=== PATIENT | male | born 1950 | race Caucasian/White ===

== ENCOUNTER 2022-02-27 11:07 | Inpatient (IN) | payer MEDICARE ==
[~2022-02-27] VITALS: Ht 193 cm; Wt 64.0 kg
[2022-02-27 11:28] LABS: BASOPHILS % (AUTO) 0.1 % (0.0-2.0); EOSINOPHILS % (AUTO) 0.2 % (1.0-6.0); HEMATOCRIT 32.2 % (41-53); HEMOGLOBIN 10.7 g/dL (13.5-17.5); LYMPHOCYTES # (AUTO) 0.6 K/uL (1.0-4.8); LYMPHOCYTES % (AUTO) 4.3 % (22.0-44.0); MEAN CORPUSCULAR HEMOGLOBIN 32.1 pg (26.0-34.0); MEAN CORPUSCULAR HGB CONC 33.3 G/dL (31.0-37.0); MEAN CORPUSCULAR VOLUME 96 fL (80-100); MONOCYTES # (AUTO) 0.8 K/uL (0.1-1.0); MONOCYTES % (AUTO) 5.2 % (2.0-9.0); NEUTROPHILS # (AUTO) 13.3 K/uL (1.8-7.7); PLATELET COUNT (AUTO) 404 K/uL (150-450); RED BLOOD CELL COUNT(AUTO) 3.34 MIL/uL (4.50-5.90); RED CELL DISTRIBUTION WIDTH 13.4 % (11.5-14.5)
[2022-02-27 11:30] LABS: NEUTROPHILS % (AUTO) 90.2 % (40.0-70.0)
[2022-02-27 11:47] LABS: INR 1.1 (0.9-1.1); PROTHROMBIN TIME 11.3 SEC (9.4-11.6)
[2022-02-27 11:50] LABS: ANION GAP 11 mmol/L (8-16); CALCIUM, TOTAL 9.3 mg/dL (8.8-10.5); CARBON DIOXIDE 28 mmol/L (22-29); CHLORIDE 96 mmol/L (98-107); CREATININE 0.74 mg/dL (0.60-1.30); GLUCOSE,RANDOM 110 mg/dL (70-110); SODIUM SERUM 135 mmol/L (136-145); UREA NITROGEN, BLOOD 28 mg/dL (7-18)
[2022-02-27 11:51] LABS: COVID AG,FIA SOURCE NASAL SWAB
[2022-02-27 11:52] LABS: GLOMERULAR FILTR. RATE CALC > 60 mL/min (>60)
[2022-02-27 11:55] LABS: ALANINE AMINOTRANSFERASE 16 U/L (12-78); ALBUMIN 2.5 g/dL (3.4-5.0); ALKALINE PHOSPHATASE 190 U/L (46-116); ASPARTATE AMINOTRANSFERASE 23 U/L (15-37); BILIRUBIN,TOTAL 0.4 mg/dL (0.1-1.0); PHOSPHORUS 2.8 mg/dL (2.5-4.9)
[2022-02-27] MEDS ORDERED: DILTIAZEM HCL 5 MG/ML 5 ML VIAL IVP ONE (13:45)
[2022-02-27] MEDS ORDERED: SODIUM CHLORIDE 0.9% 1,000 ML IV ONE ×2 (14:15→15:30)
[2022-02-27] MEDS ORDERED: DILTIAZEM HCL 30 MG TABLET PO ONE (14:15)
[2022-02-27] MEDS ORDERED: DILTIAZEM HCL 30 MG TABLET PO PRN (15:00)
[2022-02-27] MEDS ORDERED: ASPIRIN 81 MG CHEWABLE TABLET PO SCH (15:00)
[2022-02-27] MEDS ORDERED: 0.9% SODIUM CHLORIDE 10 ML SYRINGE IVP PRN (15:30)
[2022-02-27] MEDS ORDERED: ONDANSETRON HCL 4 MG/2 ML VIAL IVP PRN (15:30)
[2022-02-27] MEDS ORDERED: SODIUM CHLORIDE 0.9% 100 ML ONE (16:15)
[2022-02-27] MEDS ORDERED: IOHEXOL 350 MG/ML 100 ML VIAL ONE (16:15)
[2022-02-27 19:15] VITALS: BP 135/76
[2022-02-27] MEDS: METOPROLOL TARTRATE 25 MG TABLET PO SCH (21:18)
[2022-02-27] MEDS: LACTOBACILLUS ACIDOPHILUS/BULGARICUS TABLET PO SCH (21:18)
[2022-02-28] VITALS (7 sets, daily range): BP systolic 122–136; BP diastolic 60–76
[2022-02-28 05:05] LABS: APPEARANCE,URINE CLEAR (CLEAR); BILIRUBIN,URINE NEGATIVE (NEGATIVE); GLUCOSE, URINE (UA) NEGATIVE (NEGATIVE); LEUKOCYTE ESTERASE ,URINE NEGATIVE (NEGATIVE); NITRATE,URINE NEGATIVE (NEGATIVE); OCCULT BLOOD,URINE TRACE (NEGATIVE); PROTEIN,URINE TRACE mg/dL (NEGATIVE); UROBILINOGEN,URINE <=1.0 mg/dL (<=1.0)
[2022-02-28 05:13] LABS: AMPHET/METH SCREEN,URINE NEGATIVE (NEGATIVE); BARBITURATE SCREEN, URINE NEGATIVE (NEGATIVE); BENZODIAZEPINES SCREEN,URINE NEGATIVE (NEGATIVE); CANNABINOID SCREEN,URINE NEGATIVE (NEGATIVE); COCAINE SCREEN,URINE NEGATIVE (NEGATIVE); METHADONE SCREEN, URINE NEGATIVE (NEGATIVE); OPIATE SCREEN,URINE NEGATIVE (NEGATIVE); SPECIFIC GRAVITIY, URINE > 1.050 (1.003-1.030)
[2022-02-28 05:16] LABS: PHENCYCLIDINE SCREEN,URINE NEGATIVE (NEGATIVE)
[2022-02-28 05:26] LABS: BACTERIA,URINE None Seen /HPF (None Seen); RBC,URINE 0-2 /HPF (0-2); WBC,URINE None Seen /HPF (0-5)
[2022-02-28 06:49] LABS: BASOPHILS % (AUTO) 0.3 % (0.0-2.0); EOSINOPHILS % (AUTO) 1.6 % (1.0-6.0); HEMATOCRIT 27.6 % (41-53); HEMOGLOBIN 9.2 g/dL (13.5-17.5); LYMPHOCYTES # (AUTO) 0.5 K/uL (1.0-4.8); LYMPHOCYTES % (AUTO) 3.8 % (22.0-44.0); MEAN CORPUSCULAR HEMOGLOBIN 32.1 pg (26.0-34.0); MEAN CORPUSCULAR HGB CONC 33.5 G/dL (31.0-37.0); MEAN CORPUSCULAR VOLUME 96 fL (80-100); MONOCYTES # (AUTO) 0.7 K/uL (0.1-1.0); MONOCYTES % (AUTO) 5.4 % (2.0-9.0); NEUTROPHILS # (AUTO) 11.9 K/uL (1.8-7.7); PLATELET COUNT (AUTO) 324 K/uL (150-450); RED BLOOD CELL COUNT(AUTO) 2.87 MIL/uL (4.50-5.90); RED CELL DISTRIBUTION WIDTH 13.3 % (11.5-14.5)
[2022-02-28 06:52] LABS: NEUTROPHILS % (AUTO) 88.9 % (40.0-70.0)
[2022-02-28 07:18] LABS: ALANINE AMINOTRANSFERASE 21 U/L (12-78); ALKALINE PHOSPHATASE 145 U/L (46-116); ANION GAP 9 mmol/L (8-16); ASPARTATE AMINOTRANSFERASE 26 U/L (15-37); BILIRUBIN,TOTAL 0.3 mg/dL (0.1-1.0); CALCIUM, TOTAL 8.7 mg/dL (8.8-10.5); CARBON DIOXIDE 26 mmol/L (22-29); CHLORIDE 97 mmol/L (98-107); CHOLESTEROL 117 mg/dL (131-200); GLUCOSE,RANDOM 82 mg/dL (70-110); HDL CHOLESTEROL 29 mg/dL (40-60); LDL CHOL (CALC.) 69 mg/dL (0-130); SODIUM SERUM 132 mmol/L (136-145); THYROID STIMULATING HORMONE 1.06 uIU/mL (0.36-3.74); TOTAL PROTEIN, SERUM 6.7 g/dL (6.4-8.2); TRIGLYCERIDES 93 mg/dL (15-150); UREA NITROGEN, BLOOD 16 mg/dL (7-18)
[2022-02-28 07:22] LABS: GLOMERULAR FILTR. RATE CALC > 60 mL/min (>60)
[2022-02-28] MEDS: LACTOBACILLUS ACIDOPHILUS/BULGARICUS TABLET PO SCH ×2 (08:40→22:27)
[2022-02-28] MEDS: METOPROLOL TARTRATE 25 MG TABLET PO SCH ×2 (08:40→22:27)
[2022-02-28] MEDS: ASPIRIN 81 MG DR TABLET PO SCH (08:40)
[2022-02-28] MEDS ORDERED: ASPIRIN 81 MG CHEWABLE TABLET PO SCH (09:00)
[2022-02-28] MEDS: POTASSIUM CHLORIDE 20 MEQ ER TABLET PO PRN ×2 (11:01→18:22)
[2022-02-28] MEDS: NICOTINE 14 MG/24 HOUR PATCH TD SCH (11:52)
[2022-02-28] MEDS ORDERED: SODIUM CHLORIDE 0.9% 250 ML IV ONE (16:31)
[2022-02-28] MEDS: DOXYCYCLINE HYCLATE 100 MG in DEXTROSE 5%-WATER 100 ML IV SCH (16:37)
[2022-02-28] MEDS: CefTRIAXone 1 GM/DEXTROSE 50 ML IV SCH (16:37)
[2022-03-01] VITALS (7 sets, daily range): BP systolic 97–141; BP diastolic 51–71
[2022-03-01] MEDS: DOXYCYCLINE HYCLATE 100 MG in DEXTROSE 5%-WATER 100 ML IV SCH ×2 (04:20→16:05)
[2022-03-01 07:37] LABS: BASOPHILS % (AUTO) 0.3 % (0.0-2.0); HEMATOCRIT 27.2 % (41-53); HEMOGLOBIN 9.2 g/dL (13.5-17.5); LYMPHOCYTES # (AUTO) 0.6 K/uL (1.0-4.8); LYMPHOCYTES % (AUTO) 4.9 % (22.0-44.0); MEAN CORPUSCULAR HGB CONC 33.9 G/dL (31.0-37.0); MEAN CORPUSCULAR VOLUME 95 fL (80-100); MONOCYTES # (AUTO) 0.8 K/uL (0.1-1.0); MONOCYTES % (AUTO) 7.3 % (2.0-9.0); NEUTROPHILS # (AUTO) 9.7 K/uL (1.8-7.7); PLATELET COUNT (AUTO) 337 K/uL (150-450); RED BLOOD CELL COUNT(AUTO) 2.88 MIL/uL (4.50-5.90); RED CELL DISTRIBUTION WIDTH 13.1 % (11.5-14.5)
[2022-03-01 07:49] LABS: NEUTROPHILS % (AUTO) 86.5 % (40.0-70.0)
[2022-03-01 07:59] LABS: ALANINE AMINOTRANSFERASE 19 U/L (12-78); ALBUMIN 1.8 g/dL (3.4-5.0); ALKALINE PHOSPHATASE 125 U/L (46-116); ANION GAP 6 mmol/L (8-16); ASPARTATE AMINOTRANSFERASE 24 U/L (15-37); BILIRUBIN,TOTAL 0.3 mg/dL (0.1-1.0); CALCIUM, TOTAL 8.5 mg/dL (8.8-10.5); CARBON DIOXIDE 27 mmol/L (22-29); CHLORIDE 95 mmol/L (98-107); CREATININE 0.57 mg/dL (0.60-1.30); GLUCOSE,RANDOM 111 mg/dL (70-110); POTASSIUM 3.7 mmol/L (3.5-5.1); SODIUM SERUM 128 mmol/L (136-145); TOTAL PROTEIN, SERUM 6.4 g/dL (6.4-8.2); UREA NITROGEN, BLOOD 8 mg/dL (7-18)
[2022-03-01 08:05] LABS: GLOMERULAR FILTR. RATE CALC > 60 mL/min (>60)
[2022-03-01] MEDS: ASPIRIN 81 MG DR TABLET PO SCH (09:46)
[2022-03-01] MEDS: LACTOBACILLUS ACIDOPHILUS/BULGARICUS TABLET PO SCH ×2 (09:47→21:07)
[2022-03-01] MEDS: METOPROLOL TARTRATE 25 MG TABLET PO SCH ×3 (09:47→22:10)
[2022-03-01] MEDS: NICOTINE 14 MG/24 HOUR PATCH TD SCH (09:47)
[2022-03-01] MEDS ORDERED: MAGNESIUM SULFATE 2 GM/WATER 50 ML IV PRN (10:45)
[2022-03-01] MEDS ORDERED: MAGNESIUM SULFATE 4 GM/WATER 100 ML IV PRN (10:45)
[2022-03-01] MEDS: CefTRIAXone 1 GM/DEXTROSE 50 ML IV SCH (14:18)
[2022-03-01] MEDS ORDERED: HEPARIN SODIUM,PORCINE 5,000 UNITS/ML VIAL SQ SCH (21:00)
[2022-03-01] MEDS ORDERED: SODIUM CHLORIDE 0.9% 250 ML IV ONE ×4 (22:45→23:00)
[2022-03-01] MEDS: ACETAMINOPHEN 325 MG TABLET PO PRN (22:57)
[2022-03-01] MEDS ORDERED: DILTIAZEM HCL 5 MG/ML 5 ML VIAL IVP ONE (23:00)
[2022-03-01] MEDS ORDERED: POTASSIUM CHLORIDE 10% 40 MEQ/30 ML LIQUID UDCUP PO ONE (23:30)
[2022-03-01] MEDS ORDERED: DIGOXIN 250 MCG/ML 2 ML AMP IVP ONE (23:30)
[2022-03-02] VITALS (9 sets, daily range): BP systolic 88–122; BP diastolic 38–67
[2022-03-02] MEDS ORDERED: MAGNESIUM SULFATE 2 GM/WATER 50 ML IV ONE
[2022-03-02 00:55] LABS: MAGNESIUM 1.9 mg/dL (1.80-2.40); POTASSIUM 3.3 mmol/L (3.5-5.1)
[2022-03-02] MEDS ORDERED: PHENYLEPHRINE 200 MG/D5%-WATER 250 ML IV PRN (01:15)
[2022-03-02] MEDS ORDERED: HEPARIN SODIUM 25000 UNITS/D5W 250 ML IV PRN (01:15)
[2022-03-02] MEDS ORDERED: SODIUM CHLORIDE 0.9% 250 ML IV ONE (01:15)
[2022-03-02] MEDS ORDERED: HEPARIN SODIUM,PORCINE 5,000 UNITS/ML VIAL IVP PRN ×2 (01:15)
[2022-03-02] MEDS ORDERED: AMIODARONE HCL 150 MG in DEXTROSE 5%-WATER 97 ML IV ONE (01:20)
[2022-03-02] MEDS ORDERED: AMIODARONE HCL 360 MG in DEXTROSE 5%-WATER 242.8 ML IV ONE (01:30)
[2022-03-02 02:35] LABS: INR 1.1 (0.9-1.1); PROTHROMBIN TIME 11.2 SEC (9.4-11.6)
[2022-03-02] MEDS: DOXYCYCLINE HYCLATE 100 MG in DEXTROSE 5%-WATER 100 ML IV SCH ×2 (05:01→15:27)
[2022-03-02] MEDS ORDERED: AMIODARONE HCL 540 MG in DEXTROSE 5%-WATER 239.2 ML IV ONE (07:30)
[2022-03-02 08:02] LABS: BASOPHILS % (AUTO) 0.3 % (0.0-2.0); EOSINOPHILS % (AUTO) 1.9 % (1.0-6.0); HEMATOCRIT 26.8 % (41-53); HEMOGLOBIN 9.2 g/dL (13.5-17.5); LYMPHOCYTES # (AUTO) 0.7 K/uL (1.0-4.8); LYMPHOCYTES % (AUTO) 7.1 % (22.0-44.0); MEAN CORPUSCULAR HEMOGLOBIN 32.6 pg (26.0-34.0); MEAN CORPUSCULAR HGB CONC 34.5 G/dL (31.0-37.0); MEAN CORPUSCULAR VOLUME 95 fL (80-100); MONOCYTES # (AUTO) 0.8 K/uL (0.1-1.0); MONOCYTES % (AUTO) 8.2 % (2.0-9.0); NEUTROPHILS # (AUTO) 8.1 K/uL (1.8-7.7); NEUTROPHILS % (AUTO) 82.5 % (40.0-70.0); PLATELET COUNT (AUTO) 300 K/uL (150-450); RED BLOOD CELL COUNT(AUTO) 2.83 MIL/uL (4.50-5.90); RED CELL DISTRIBUTION WIDTH 13.1 % (11.5-14.5)
[2022-03-02 08:39] LABS: ALANINE AMINOTRANSFERASE 17 U/L (12-78); ALBUMIN 1.7 g/dL (3.4-5.0); ALKALINE PHOSPHATASE 109 U/L (46-116); ASPARTATE AMINOTRANSFERASE 18 U/L (15-37); BILIRUBIN,TOTAL 0.3 mg/dL (0.1-1.0); CALCIUM, TOTAL 8.3 mg/dL (8.8-10.5); CARBON DIOXIDE 28 mmol/L (22-29); CHLORIDE 93 mmol/L (98-107); CREATININE 0.62 mg/dL (0.60-1.30); GLUCOSE,RANDOM 106 mg/dL (70-110); POTASSIUM 4.1 mmol/L (3.5-5.1); TOTAL PROTEIN, SERUM 6.2 g/dL (6.4-8.2); UREA NITROGEN, BLOOD 9 mg/dL (7-18)
[2022-03-02 08:53] LABS: ANION GAP 4 mmol/L (8-16); GLOMERULAR FILTR. RATE CALC > 60 mL/min (>60); SODIUM SERUM 125 mmol/L (136-145)
[2022-03-02] MEDS ORDERED: HEPARIN SODIUM,PORCINE 5,000 UNITS/ML VIAL SQ SCH (09:00)
[2022-03-02] MEDS: ASPIRIN 81 MG DR TABLET PO SCH (09:05)
[2022-03-02] MEDS: LACTOBACILLUS ACIDOPHILUS/BULGARICUS TABLET PO SCH ×2 (09:05→20:15)
[2022-03-02] MEDS: NICOTINE 14 MG/24 HOUR PATCH TD SCH (09:05)
[2022-03-02] MEDS: METOPROLOL TARTRATE 25 MG TABLET PO SCH ×2 (09:06→20:16)
[2022-03-02] MEDS ORDERED: DOCUSATE SODIUM 100 MG CAPSULE PO PRN (11:00)
[2022-03-02] MEDS ORDERED: SODIUM CHLORIDE 0.9% 1,000 ML IV ONE (11:15)
[2022-03-02] MEDS: CefTRIAXone 1 GM/DEXTROSE 50 ML IV SCH (17:01)
[2022-03-02] MEDS ORDERED: *CLINICAL-RX DOSING [ENTER DRUG IN COMMENTS] CLINICAL ONE (18:30)
[2022-03-02] MEDS: PYRAZINAMIDE 500 MG TABLET PO SCH (20:15)
[2022-03-02] MEDS: ETHAMBUTOL HCL 400 MG TABLET PO SCH (20:16)
[2022-03-02] MEDS: RIFAMPIN 300 MG CAPSULE PO SCH (20:16)
[2022-03-02] MEDS: ISONIAZID 300 MG TABLET PO SCH (20:17)
[2022-03-02] MEDS: APIXABAN 5 MG TABLET PO SCH (20:17)
[2022-03-03] VITALS (13 sets, daily range): BP systolic 71–122; BP diastolic 46–76
[2022-03-03] MEDS ORDERED: AMIODARONE HCL 750 MG in DEXTROSE 5%-WATER 485 ML IV SCH (01:30)
[2022-03-03] MEDS: DOXYCYCLINE HYCLATE 100 MG in DEXTROSE 5%-WATER 100 ML IV SCH (04:57)
[2022-03-03 06:36] LABS: BASOPHILS % (AUTO) 1.3 % (0.0-2.0); EOSINOPHILS % (AUTO) 0.8 % (1.0-6.0); HEMATOCRIT 26.9 % (41-53); LYMPHOCYTES # (AUTO) 0.5 K/uL (1.0-4.8); LYMPHOCYTES % (AUTO) 4.5 % (22.0-44.0); MEAN CORPUSCULAR HEMOGLOBIN 31.6 pg (26.0-34.0); MEAN CORPUSCULAR HGB CONC 33.5 G/dL (31.0-37.0); MEAN CORPUSCULAR VOLUME 94 fL (80-100); MONOCYTES # (AUTO) 0.8 K/uL (0.1-1.0); MONOCYTES % (AUTO) 6.9 % (2.0-9.0); NEUTROPHILS # (AUTO) 10.2 K/uL (1.8-7.7); PLATELET COUNT (AUTO) 368 K/uL (150-450); RED BLOOD CELL COUNT(AUTO) 2.85 MIL/uL (4.50-5.90); RED CELL DISTRIBUTION WIDTH 13.4 % (11.5-14.5)
[2022-03-03 06:40] LABS: NEUTROPHILS % (AUTO) 86.5 % (40.0-70.0)
[2022-03-03 06:48] LABS: ANION GAP 7 mmol/L (8-16); CALCIUM, TOTAL 8.1 mg/dL (8.8-10.5); CARBON DIOXIDE 25 mmol/L (22-29); CHLORIDE 91 mmol/L (98-107); CREATININE 0.57 mg/dL (0.60-1.30); GLUCOSE,RANDOM 104 mg/dL (70-110); POTASSIUM 3.8 mmol/L (3.5-5.1); UREA NITROGEN, BLOOD 10 mg/dL (7-18)
[2022-03-03 06:57] LABS: GLOMERULAR FILTR. RATE CALC > 60 mL/min (>60); SODIUM SERUM 123 mmol/L (136-145)
[2022-03-03] MEDS: NICOTINE 14 MG/24 HOUR PATCH TD SCH (08:47)
[2022-03-03] MEDS: RIFAMPIN 300 MG CAPSULE PO SCH (08:48)
[2022-03-03] MEDS: LACTOBACILLUS ACIDOPHILUS/BULGARICUS TABLET PO SCH ×2 (08:48→21:04)
[2022-03-03] MEDS: APIXABAN 5 MG TABLET PO SCH ×2 (08:49→21:04)
[2022-03-03] MEDS: METOPROLOL TARTRATE 25 MG TABLET PO SCH ×2 (08:49→21:00)
[2022-03-03] MEDS: ETHAMBUTOL HCL 400 MG TABLET PO SCH (08:49)
[2022-03-03] MEDS: PYRAZINAMIDE 500 MG TABLET PO SCH (08:49)
[2022-03-03] MEDS: ISONIAZID 300 MG TABLET PO SCH (08:49)
[2022-03-03] MEDS: ACETAMINOPHEN 325 MG TABLET PO PRN ×2 (11:14→21:04)
[2022-03-03] MEDS: TAMSULOSIN HCL 0.4 MG CAPSULE PO SCH ×2 (12:32→21:04)
[2022-03-03] MEDS: SODIUM CHLORIDE 1 GM TABLET PO SCH (21:04)
[2022-03-03] MEDS ORDERED: METOPROLOL TARTRATE 5 MG/5 ML VIAL IVP ONE (21:45)
[2022-03-03] MEDS ORDERED: RINGERS SOLUTION,LACTATED 500 ML IV ONE (21:45)
[2022-03-03] MEDS ORDERED: DIGOXIN 250 MCG/ML 2 ML AMP IVP ONE (23:15)
[2022-03-03] MEDS ORDERED: PHENYLEPHRINE 200 MG/D5%-WATER 250 ML IV PRN ×2 (23:15)
[2022-03-04] VITALS (7 sets, daily range): BP systolic 106–132; BP diastolic 58–77
[2022-03-04 00:43] LABS: APPEARANCE,URINE CLEAR (CLEAR); BILIRUBIN,URINE NEGATIVE (NEGATIVE); GLUCOSE, URINE (UA) NEGATIVE (NEGATIVE); KETONES,URINE NEGATIVE (NEGATIVE); LEUKOCYTE ESTERASE ,URINE SMALL (NEGATIVE); NITRATE,URINE NEGATIVE (NEGATIVE); OCCULT BLOOD,URINE TRACE (NEGATIVE); PH,URINE 6.5 (5.0-8.0); PROTEIN,URINE TRACE mg/dL (NEGATIVE); SPECIFIC GRAVITIY, URINE 1.019 (1.003-1.030)
[2022-03-04 00:48] LABS: CREATININE,URINE RANDOM 77.9 mg/dL (30.0-125.0); PROTEIN,URINE RANDOM 44 mg/dL (0-11.9); SODIUM,URINE RANDOM 83 mmol/l (20-110); UREA NITROGEN,URINE RANDOM 636 mg/dL (350-1000)
[2022-03-04 00:51] LABS: GLUCOMETER DEV NAME(LOC) 5S.1B; GLUCOSE,POINT OF CARE 124 MG/DL (70-110)
[2022-03-04 01:36] LABS: BACTERIA,URINE None Seen /HPF (None Seen); MUCUS,URINE Rare LPF (None Seen); SQUAMOUS EPITHELIAL CELL,UR Rare /LPF (None Seen)
[2022-03-04 06:29] LABS: BASOPHILS % (AUTO) 0.5 % (0.0-2.0); EOSINOPHILS % (AUTO) 1.3 % (1.0-6.0); HEMATOCRIT 27.6 % (41-53); HEMOGLOBIN 9.6 g/dL (13.5-17.5); LYMPHOCYTES # (AUTO) 0.5 K/uL (1.0-4.8); LYMPHOCYTES % (AUTO) 4.1 % (22.0-44.0); MEAN CORPUSCULAR HEMOGLOBIN 32.3 pg (26.0-34.0); MEAN CORPUSCULAR HGB CONC 34.6 G/dL (31.0-37.0); MEAN CORPUSCULAR VOLUME 93 fL (80-100); MONOCYTES # (AUTO) 0.9 K/uL (0.1-1.0); NEUTROPHILS # (AUTO) 10.9 K/uL (1.8-7.7); PLATELET COUNT (AUTO) 430 K/uL (150-450); RED BLOOD CELL COUNT(AUTO) 2.97 MIL/uL (4.50-5.90); RED CELL DISTRIBUTION WIDTH 13.9 % (11.5-14.5)
[2022-03-04 06:36] LABS: NEUTROPHILS % (AUTO) 87.1 % (40.0-70.0)
[2022-03-04 06:43] LABS: ANION GAP 8 mmol/L (8-16); CALCIUM, TOTAL 8.5 mg/dL (8.8-10.5); CARBON DIOXIDE 25 mmol/L (22-29); CHLORIDE 91 mmol/L (98-107); CREATININE 0.64 mg/dL (0.60-1.30); GLUCOSE,RANDOM 100 mg/dL (70-110); PHOSPHORUS 3.9 mg/dL (2.5-4.9); POTASSIUM 3.5 mmol/L (3.5-5.1); UREA NITROGEN, BLOOD 12 mg/dL (7-18); URIC ACID 4.1 mg/dL (2.6-7.2)
[2022-03-04 07:02] LABS: GLOMERULAR FILTR. RATE CALC > 60 mL/min (>60); SODIUM SERUM 124 mmol/L (136-145)
[2022-03-04] MEDS ORDERED: SODIUM CHLORIDE 0.9% 1,000 ML IV ONE (08:45)
[2022-03-04] MEDS ORDERED: IOHEXOL 350 MG/ML 100 ML VIAL ONE (08:49)
[2022-03-04] MEDS ORDERED: SODIUM CHLORIDE 0.9% 100 ML ONE (08:49)
[2022-03-04] MEDS: SODIUM CHLORIDE 1 GM TABLET PO SCH ×2 (09:00→15:30)
[2022-03-04] MEDS: ISONIAZID 300 MG TABLET PO SCH (09:33)
[2022-03-04] MEDS: APIXABAN 5 MG TABLET PO SCH ×2 (09:33→20:05)
[2022-03-04] MEDS: ETHYL ALCOHOL 62% ANTISEPTIC NASAL SANITIZER 0.6 ML AMPUL NASAL SCH ×2 (09:33→20:06)
[2022-03-04] MEDS: RIFAMPIN 300 MG CAPSULE PO SCH (09:33)
[2022-03-04] MEDS: PYRAZINAMIDE 500 MG TABLET PO SCH (09:33)
[2022-03-04] MEDS: ETHAMBUTOL HCL 400 MG TABLET PO SCH (09:34)
[2022-03-04] MEDS: LACTOBACILLUS ACIDOPHILUS/BULGARICUS TABLET PO SCH ×2 (09:34→20:06)
[2022-03-04] MEDS: MIDODRINE HCL 5 MG TABLET PO SCH ×2 (09:34→20:06)
[2022-03-04] MEDS: TAMSULOSIN HCL 0.4 MG CAPSULE PO SCH ×2 (09:34→20:05)
[2022-03-04] MEDS: NICOTINE 14 MG/24 HOUR PATCH TD SCH (09:35)
[2022-03-04] MEDS: ALBUMIN HUMAN 25%-25GM/100ML 100 ML IV SCH ×2 (10:33→17:16)
[2022-03-04] MEDS ORDERED: LIDOCAINE 2% 5 ML JELLY ONE (11:18)
[2022-03-04] MEDS: ACETAMINOPHEN 325 MG TABLET PO PRN (15:03)
[2022-03-04 15:25] LABS: POTASSIUM,URINE RANDOM 26 mmol/L (12-75); SODIUM,URINE RANDOM 57 mmol/l (20-110)
[2022-03-04 16:18] LABS: ANION GAP 7 mmol/L (8-16); CALCIUM, TOTAL 8.2 mg/dL (8.8-10.5); CARBON DIOXIDE 27 mmol/L (22-29); CHLORIDE 93 mmol/L (98-107); CREATININE 0.51 mg/dL (0.60-1.30); GLOMERULAR FILTR. RATE CALC > 60 mL/min (>60); GLUCOSE,RANDOM 91 mg/dL (70-110); POTASSIUM 3.4 mmol/L (3.5-5.1); SODIUM SERUM 127 mmol/L (136-145); UREA NITROGEN, BLOOD 10 mg/dL (7-18)
[2022-03-04 17:01] LABS: PHOSPHORUS 3.1 mg/dL (2.5-4.9)
[2022-03-04] MEDS ORDERED: POTASSIUM CHLORIDE 20 MEQ ER TABLET PO ONE (17:30)
[2022-03-04] MEDS ORDERED: SODIUM CHLORIDE 0.9% 250 ML IV ONE (17:39)
[2022-03-04] MEDS ORDERED: MAGNESIUM SULFATE 3 GM in DEXTROSE 5%-WATER 100 ML IV ONE (18:00)
[2022-03-05] MEDS: ALBUMIN HUMAN 25%-25GM/100ML 100 ML IV SCH ×3 (01:35→16:26)
[2022-03-05 04:48] VITALS: BP 101/58
[2022-03-05 08:00] VITALS: BP 94/53
[2022-03-05] MEDS: DIGOXIN 125 MCG TABLET PO SCH (08:28)
[2022-03-05] MEDS: ACETAMINOPHEN 325 MG TABLET PO PRN ×2 (08:28→16:32)
[2022-03-05] MEDS: TAMSULOSIN HCL 0.4 MG CAPSULE PO SCH ×2 (08:28→21:24)
[2022-03-05] MEDS: LACTOBACILLUS ACIDOPHILUS/BULGARICUS TABLET PO SCH ×2 (08:30→21:25)
[2022-03-05] MEDS: MIDODRINE HCL 5 MG TABLET PO SCH ×2 (08:30→21:25)
[2022-03-05] MEDS: APIXABAN 5 MG TABLET PO SCH ×2 (08:31→21:24)
[2022-03-05] MEDS: ISONIAZID 300 MG TABLET PO SCH (08:31)
[2022-03-05] MEDS: PYRAZINAMIDE 500 MG TABLET PO SCH (08:31)
[2022-03-05] MEDS: ETHAMBUTOL HCL 400 MG TABLET PO SCH (08:31)
[2022-03-05] MEDS: RIFAMPIN 300 MG CAPSULE PO SCH (08:31)
[2022-03-05] MEDS: NICOTINE 14 MG/24 HOUR PATCH TD SCH (08:32)
[2022-03-05] MEDS: ETHYL ALCOHOL 62% ANTISEPTIC NASAL SANITIZER 0.6 ML AMPUL NASAL SCH ×2 (08:42→21:24)
[2022-03-05 10:19] LABS: ANION GAP 12 mmol/L (8-16); CALCIUM, TOTAL 8.4 mg/dL (8.8-10.5); CARBON DIOXIDE 23 mmol/L (22-29); CHLORIDE 93 mmol/L (98-107); CREATININE 0.58 mg/dL (0.60-1.30); GLUCOSE,RANDOM 100 mg/dL (70-110); POTASSIUM 3.8 mmol/L (3.5-5.1); SODIUM SERUM 128 mmol/L (136-145); UREA NITROGEN, BLOOD 7 mg/dL (7-18)
[2022-03-05 10:20] LABS: GLOMERULAR FILTR. RATE CALC > 60 mL/min (>60)
[2022-03-05 10:23] LABS: PHOSPHORUS 2.5 mg/dL (2.5-4.9)
[2022-03-05 10:58] VITALS: BP 95/57
[2022-03-05 15:30] VITALS: BP 111/65
[2022-03-05] MEDS ORDERED: DIGOXIN 250 MCG/ML 2 ML AMP IVP ONE (15:45)
[2022-03-05 16:56] VITALS: BP 94/54
[2022-03-05] MEDS ORDERED: AMIODARONE HCL 150 MG in DEXTROSE 5%-WATER 97 ML IV ONE (17:15)
[2022-03-05] MEDS ORDERED: AMIODARONE HCL 360 MG in DEXTROSE 5%-WATER 242.8 ML IV ONE (17:30)
[2022-03-05 20:07] VITALS: BP 90/52
[2022-03-05] MEDS ORDERED: AMIODARONE HCL 540 MG in DEXTROSE 5%-WATER 239.2 ML IV ONE (23:30)
[2022-03-06] MEDS: ALBUMIN HUMAN 25%-25GM/100ML 100 ML IV SCH ×3 (00:57→18:03)
[2022-03-06 04:35] VITALS: BP 97/55
[2022-03-06] MEDS ORDERED: SODIUM CHLORIDE 0.9% 250 ML IV ONE ×3 (06:26→18:00)
[2022-03-06 06:36] LABS: BASOPHILS % (AUTO) 0.6 % (0.0-2.0); HEMATOCRIT 27.6 % (41-53); HEMOGLOBIN 9.6 g/dL (13.5-17.5); LYMPHOCYTES # (AUTO) 0.4 K/uL (1.0-4.8); LYMPHOCYTES % (AUTO) 4.5 % (22.0-44.0); MEAN CORPUSCULAR HEMOGLOBIN 32.3 pg (26.0-34.0); MEAN CORPUSCULAR HGB CONC 34.7 G/dL (31.0-37.0); MEAN CORPUSCULAR VOLUME 93 fL (80-100); MONOCYTES # (AUTO) 0.6 K/uL (0.1-1.0); MONOCYTES % (AUTO) 6.4 % (2.0-9.0); NEUTROPHILS # (AUTO) 8.4 K/uL (1.8-7.7); PLATELET COUNT (AUTO) 354 K/uL (150-450); RED BLOOD CELL COUNT(AUTO) 2.96 MIL/uL (4.50-5.90); RED CELL DISTRIBUTION WIDTH 13.8 % (11.5-14.5)
[2022-03-06 06:52] LABS: ANION GAP 5 mmol/L (8-16); CALCIUM, TOTAL 8.7 mg/dL (8.8-10.5); CARBON DIOXIDE 29 mmol/L (22-29); CHLORIDE 92 mmol/L (98-107); CREATININE 0.56 mg/dL (0.60-1.30); GLUCOSE,RANDOM 97 mg/dL (70-110); PHOSPHORUS 2.5 mg/dL (2.5-4.9); POTASSIUM 3.8 mmol/L (3.5-5.1); SODIUM SERUM 126 mmol/L (136-145); UREA NITROGEN, BLOOD 8 mg/dL (7-18)
[2022-03-06 06:57] LABS: GLOMERULAR FILTR. RATE CALC > 60 mL/min (>60)
[2022-03-06 06:58] LABS: NEUTROPHILS % (AUTO) 86.5 % (40.0-70.0)
[2022-03-06 07:15] VITALS: BP 112/64
[2022-03-06] MEDS: ETHYL ALCOHOL 62% ANTISEPTIC NASAL SANITIZER 0.6 ML AMPUL NASAL SCH ×2 (08:40→21:51)
[2022-03-06] MEDS: APIXABAN 5 MG TABLET PO SCH ×2 (08:40→21:51)
[2022-03-06] MEDS: LACTOBACILLUS ACIDOPHILUS/BULGARICUS TABLET PO SCH ×2 (08:41→21:51)
[2022-03-06] MEDS: METOPROLOL TARTRATE 25 MG TABLET PO SCH ×2 (08:41→21:51)
[2022-03-06] MEDS: ISONIAZID 300 MG TABLET PO SCH (08:41)
[2022-03-06] MEDS: TAMSULOSIN HCL 0.4 MG CAPSULE PO SCH ×2 (08:41→21:51)
[2022-03-06] MEDS: ETHAMBUTOL HCL 400 MG TABLET PO SCH (08:44)
[2022-03-06] MEDS: PYRAZINAMIDE 500 MG TABLET PO SCH (08:46)
[2022-03-06] MEDS: NICOTINE 14 MG/24 HOUR PATCH TD SCH (08:46)
[2022-03-06] MEDS: MIDODRINE HCL 5 MG TABLET PO SCH ×2 (08:46→21:56)
[2022-03-06] MEDS: RIFAMPIN 300 MG CAPSULE PO SCH (08:46)
[2022-03-06] MEDS: ACETAMINOPHEN 325 MG TABLET PO PRN ×2 (09:08→18:07)
[2022-03-06 12:49] VITALS: BP 88/57
[2022-03-06] MEDS: SODIUM CHLORIDE 1 GM TABLET PO SCH ×2 (12:59→18:06)
[2022-03-06] MEDS ORDERED: SODIUM CHLORIDE 0.9% 1,000 ML IV ONE (14:00)
[2022-03-06 16:04] VITALS: BP 114/66
[2022-03-06] MEDS: AMIODARONE HCL 750 MG in DEXTROSE 5%-WATER 485 ML IV SCH (18:03)
[2022-03-06 19:25] VITALS: BP 118/68
[2022-03-07] MEDS: SODIUM CHLORIDE 1 GM TABLET PO SCH ×4 (00:36→18:24)
[2022-03-07 01:10] VITALS: BP 122/61
[2022-03-07 04:15] VITALS: BP 112/61
[2022-03-07] MEDS: ALBUMIN HUMAN 25%-25GM/100ML 100 ML IV SCH ×3 (05:35→21:58)
[2022-03-07 07:25] LABS: ANION GAP 7 mmol/L (8-16); CALCIUM, TOTAL 8.7 mg/dL (8.8-10.5); CARBON DIOXIDE 27 mmol/L (22-29); CHLORIDE 94 mmol/L (98-107); CREATININE 0.53 mg/dL (0.60-1.30); GLOMERULAR FILTR. RATE CALC > 60 mL/min (>60); GLUCOSE,RANDOM 85 mg/dL (70-110); POTASSIUM 3.4 mmol/L (3.5-5.1); SODIUM SERUM 128 mmol/L (136-145); UREA NITROGEN, BLOOD 7 mg/dL (7-18)
[2022-03-07 08:00] VITALS: BP 116/57
[2022-03-07] MEDS: PYRAZINAMIDE 500 MG TABLET PO SCH (09:16)
[2022-03-07] MEDS: RIFAMPIN 300 MG CAPSULE PO SCH (09:17)
[2022-03-07] MEDS: ETHYL ALCOHOL 62% ANTISEPTIC NASAL SANITIZER 0.6 ML AMPUL NASAL SCH ×2 (09:17→21:58)
[2022-03-07] MEDS: ISONIAZID 300 MG TABLET PO SCH (09:17)
[2022-03-07] MEDS: NICOTINE 14 MG/24 HOUR PATCH TD SCH (09:17)
[2022-03-07] MEDS: ETHAMBUTOL HCL 400 MG TABLET PO SCH (09:17)
[2022-03-07] MEDS: LACTOBACILLUS ACIDOPHILUS/BULGARICUS TABLET PO SCH ×2 (09:17→21:58)
[2022-03-07] MEDS: APIXABAN 5 MG TABLET PO SCH ×2 (09:18→21:58)
[2022-03-07] MEDS: METOPROLOL TARTRATE 25 MG TABLET PO SCH ×2 (09:18→21:00)
[2022-03-07] MEDS: MIDODRINE HCL 5 MG TABLET PO SCH ×2 (09:18→21:59)
[2022-03-07] MEDS: TAMSULOSIN HCL 0.4 MG CAPSULE PO SCH ×2 (09:18→21:58)
[2022-03-07] MEDS: ACETAMINOPHEN 325 MG TABLET PO PRN ×2 (09:18→15:54)
[2022-03-07] MEDS: PYRIDOXINE HCL 50 MG TABLET PO SCH (12:29)
[2022-03-07] MEDS: DIGOXIN 125 MCG TABLET PO SCH (12:29)
[2022-03-07 16:00] VITALS: BP 92/56
[2022-03-07] MEDS: AMIODARONE HCL 750 MG in DEXTROSE 5%-WATER 485 ML IV SCH (18:18)
[2022-03-07] MEDS: POTASSIUM CHLORIDE 20 MEQ ER TABLET PO PRN (18:18)
[2022-03-07 20:43] VITALS: BP 97/59
[2022-03-08 00:21] VITALS: BP 102/56
[2022-03-08] MEDS: SODIUM CHLORIDE 1 GM TABLET PO SCH ×5 (00:25→23:43)
[2022-03-08 05:29] VITALS: BP 96/51
[2022-03-08] MEDS: ALBUMIN HUMAN 25%-25GM/100ML 100 ML IV SCH ×3 (06:28→23:43)
[2022-03-08] MEDS: METOPROLOL TARTRATE 25 MG TABLET PO SCH ×3 (09:00→20:41)
[2022-03-08 09:10] VITALS: BP 94/54
[2022-03-08] MEDS: LACTOBACILLUS ACIDOPHILUS/BULGARICUS TABLET PO SCH ×2 (09:30→20:04)
[2022-03-08] MEDS: APIXABAN 5 MG TABLET PO SCH ×2 (09:30→20:05)
[2022-03-08] MEDS: PYRAZINAMIDE 500 MG TABLET PO SCH (09:30)
[2022-03-08] MEDS: ETHAMBUTOL HCL 400 MG TABLET PO SCH (09:30)
[2022-03-08] MEDS: TAMSULOSIN HCL 0.4 MG CAPSULE PO SCH ×2 (09:31→20:03)
[2022-03-08] MEDS: PYRIDOXINE HCL 50 MG TABLET PO SCH (09:31)
[2022-03-08] MEDS: ACETAMINOPHEN 325 MG TABLET PO PRN (09:31)
[2022-03-08] MEDS: MIDODRINE HCL 5 MG TABLET PO SCH ×3 (09:31→20:05)
[2022-03-08] MEDS: RIFAMPIN 300 MG CAPSULE PO SCH (09:31)
[2022-03-08] MEDS: ISONIAZID 300 MG TABLET PO SCH (09:31)
[2022-03-08] MEDS: ETHYL ALCOHOL 62% ANTISEPTIC NASAL SANITIZER 0.6 ML AMPUL NASAL SCH ×2 (09:32→20:05)
[2022-03-08] MEDS: NICOTINE 14 MG/24 HOUR PATCH TD SCH (09:32)
[2022-03-08] MEDS: AMIODARONE HCL 200 MG TABLET PO SCH ×2 (12:15→20:04)
[2022-03-08 14:27] VITALS: BP 100/61
[2022-03-08 20:40] VITALS: BP 96/56
[2022-03-08] MEDS ORDERED: SODIUM CHLORIDE 0.9% 500 ML IV ONE (23:46)
[2022-03-09 00:36] VITALS: BP 100/54
[2022-03-09 04:40] VITALS: BP 110/63
[2022-03-09] MEDS: ALBUMIN HUMAN 25%-25GM/100ML 100 ML IV SCH ×3 (05:57→21:03)
[2022-03-09] MEDS: SODIUM CHLORIDE 1 GM TABLET PO SCH ×3 (05:57→17:28)
[2022-03-09 06:09] LABS: BASOPHILS % (AUTO) 0.4 % (0.0-2.0); EOSINOPHILS % (AUTO) 0.9 % (1.0-6.0); HEMATOCRIT 24.2 % (41-53); LYMPHOCYTES # (AUTO) 0.5 K/uL (1.0-4.8); LYMPHOCYTES % (AUTO) 3.7 % (22.0-44.0); MEAN CORPUSCULAR HEMOGLOBIN 31.3 pg (26.0-34.0); MEAN CORPUSCULAR HGB CONC 33.2 G/dL (31.0-37.0); MEAN CORPUSCULAR VOLUME 94 fL (80-100); MONOCYTES # (AUTO) 0.7 K/uL (0.1-1.0); MONOCYTES % (AUTO) 5.2 % (2.0-9.0); NEUTROPHILS # (AUTO) 11.3 K/uL (1.8-7.7); PLATELET COUNT (AUTO) 351 K/uL (150-450); RED BLOOD CELL COUNT(AUTO) 2.57 MIL/uL (4.50-5.90); RED CELL DISTRIBUTION WIDTH 13.8 % (11.5-14.5)
[2022-03-09 06:29] LABS: ALANINE AMINOTRANSFERASE 7 U/L (12-78); ALBUMIN 3.7 g/dL (3.4-5.0); ALKALINE PHOSPHATASE 58 U/L (46-116); ANION GAP 12 mmol/L (8-16); ASPARTATE AMINOTRANSFERASE 8 U/L (15-37); BILIRUBIN,TOTAL 0.9 mg/dL (0.1-1.0); CALCIUM, TOTAL 8.9 mg/dL (8.8-10.5); CARBON DIOXIDE 25 mmol/L (22-29); CHLORIDE 92 mmol/L (98-107); CREATININE 0.49 mg/dL (0.60-1.30); GLUCOSE,RANDOM 89 mg/dL (70-110); POTASSIUM 3.1 mmol/L (3.5-5.1); SODIUM SERUM 129 mmol/L (136-145); TOTAL PROTEIN, SERUM 6.4 g/dL (6.4-8.2); UREA NITROGEN, BLOOD 7 mg/dL (7-18)
[2022-03-09 06:37] LABS: NEUTROPHILS % (AUTO) 89.8 % (40.0-70.0)
[2022-03-09 07:03] LABS: DIGOXIN < 0.20 ng/mL (0.90-2.00); GLOMERULAR FILTR. RATE CALC > 60 mL/min (>60)
[2022-03-09 08:06] VITALS: BP 104/57
[2022-03-09] MEDS: METOPROLOL TARTRATE 25 MG TABLET PO SCH ×2 (09:00→21:00)
[2022-03-09] MEDS ORDERED: SODIUM CHLORIDE 0.9% 500 ML IV ONE (09:43)
[2022-03-09] MEDS: ISONIAZID 300 MG TABLET PO SCH (09:45)
[2022-03-09] MEDS: NICOTINE 14 MG/24 HOUR PATCH TD SCH (09:45)
[2022-03-09] MEDS: RIFAMPIN 300 MG CAPSULE PO SCH (09:45)
[2022-03-09] MEDS: LACTOBACILLUS ACIDOPHILUS/BULGARICUS TABLET PO SCH ×2 (09:46→21:03)
[2022-03-09] MEDS: DIGOXIN 125 MCG TABLET PO SCH (09:46)
[2022-03-09] MEDS: AMIODARONE HCL 200 MG TABLET PO SCH ×2 (09:46→21:03)
[2022-03-09] MEDS: PYRAZINAMIDE 500 MG TABLET PO SCH (09:46)
[2022-03-09] MEDS: ETHAMBUTOL HCL 400 MG TABLET PO SCH (09:46)
[2022-03-09] MEDS: APIXABAN 5 MG TABLET PO SCH ×2 (09:46→21:03)
[2022-03-09] MEDS: PYRIDOXINE HCL 50 MG TABLET PO SCH (09:47)
[2022-03-09] MEDS: MIDODRINE HCL 5 MG TABLET PO SCH ×3 (09:47→21:03)
[2022-03-09] MEDS: TAMSULOSIN HCL 0.4 MG CAPSULE PO SCH ×2 (09:47→21:04)
[2022-03-09] MEDS: ETHYL ALCOHOL 62% ANTISEPTIC NASAL SANITIZER 0.6 ML AMPUL NASAL SCH ×2 (09:47→21:05)
[2022-03-09] MEDS: TOLVAPTAN 15 MG TABLET PO SCH (09:48)
[2022-03-09] MEDS: POTASSIUM CHL 10 MEQ/WATER 50 ML IV PRN ×3 (09:59→13:07)
[2022-03-09 11:04] VITALS: BP 93/50
[2022-03-09] MEDS: POTASSIUM CHLORIDE 20 MEQ ER TABLET PO SCH (11:55)
[2022-03-09] MEDS: NYSTATIN 500,000 UNITS/5 ML SUSPENSION UDCUP PO SCH ×2 (11:55→17:28)
[2022-03-09 15:34] VITALS: BP 119/69
[2022-03-09 19:53] VITALS: BP 115/72
[2022-03-10 00:01] VITALS: BP 116/63
[2022-03-10] MEDS: NYSTATIN 500,000 UNITS/5 ML SUSPENSION UDCUP PO SCH ×4 (00:06→23:48)
[2022-03-10] MEDS: SODIUM CHLORIDE 1 GM TABLET PO SCH ×5 (00:06→23:48)
[2022-03-10] MEDS: METOPROLOL TARTRATE 25 MG TABLET PO SCH ×3 (02:49→21:27)
[2022-03-10 05:14] VITALS: BP 96/53
[2022-03-10] MEDS ORDERED: SODIUM CHLORIDE 0.9% 500 ML IV ONE (05:35)
[2022-03-10] MEDS: ALBUMIN HUMAN 25%-25GM/100ML 100 ML IV SCH ×3 (05:37→21:29)
[2022-03-10 07:10] VITALS: BP 98/54
[2022-03-10 07:21] LABS: BASOPHILS % (AUTO) 0.6 % (0.0-2.0); EOSINOPHILS % (AUTO) 1.2 % (1.0-6.0); HEMATOCRIT 23.4 % (41-53); HEMOGLOBIN 8.1 g/dL (13.5-17.5); LYMPHOCYTES # (AUTO) 0.4 K/uL (1.0-4.8); LYMPHOCYTES % (AUTO) 3.4 % (22.0-44.0); MEAN CORPUSCULAR HEMOGLOBIN 32.4 pg (26.0-34.0); MEAN CORPUSCULAR HGB CONC 34.4 G/dL (31.0-37.0); MEAN CORPUSCULAR VOLUME 94 fL (80-100); MONOCYTES # (AUTO) 0.6 K/uL (0.1-1.0); NEUTROPHILS # (AUTO) 11.3 K/uL (1.8-7.7); PLATELET COUNT (AUTO) 334 K/uL (150-450); RED BLOOD CELL COUNT(AUTO) 2.49 MIL/uL (4.50-5.90); RED CELL DISTRIBUTION WIDTH 14.1 % (11.5-14.5)
[2022-03-10 07:24] LABS: NEUTROPHILS % (AUTO) 89.8 % (40.0-70.0)
[2022-03-10 07:30] LABS: ANION GAP 6 mmol/L (8-16); CALCIUM, TOTAL 9.4 mg/dL (8.8-10.5); CARBON DIOXIDE 28 mmol/L (22-29); CHLORIDE 97 mmol/L (98-107); CREATININE 0.73 mg/dL (0.60-1.30); GLUCOSE,RANDOM 94 mg/dL (70-110); SODIUM SERUM 131 mmol/L (136-145); UREA NITROGEN, BLOOD 11 mg/dL (7-18)
[2022-03-10 07:33] LABS: GLOMERULAR FILTR. RATE CALC > 60 mL/min (>60)
[2022-03-10] MEDS: ETHYL ALCOHOL 62% ANTISEPTIC NASAL SANITIZER 0.6 ML AMPUL NASAL SCH ×2 (08:22→21:26)
[2022-03-10] MEDS: APIXABAN 5 MG TABLET PO SCH ×2 (08:23→21:28)
[2022-03-10] MEDS: TAMSULOSIN HCL 0.4 MG CAPSULE PO SCH ×2 (08:23→21:27)
[2022-03-10] MEDS: LACTOBACILLUS ACIDOPHILUS/BULGARICUS TABLET PO SCH ×2 (08:24→21:26)
[2022-03-10] MEDS: ETHAMBUTOL HCL 400 MG TABLET PO SCH (08:24)
[2022-03-10] MEDS: AMIODARONE HCL 200 MG TABLET PO SCH ×2 (08:24→21:26)
[2022-03-10] MEDS: POTASSIUM CHLORIDE 20 MEQ ER TABLET PO SCH (08:24)
[2022-03-10] MEDS: ISONIAZID 300 MG TABLET PO SCH (08:24)
[2022-03-10] MEDS: MIDODRINE HCL 5 MG TABLET PO SCH ×3 (08:25→21:28)
[2022-03-10] MEDS: NICOTINE 14 MG/24 HOUR PATCH TD SCH (08:25)
[2022-03-10] MEDS: RIFAMPIN 300 MG CAPSULE PO SCH (08:25)
[2022-03-10] MEDS: PYRIDOXINE HCL 50 MG TABLET PO SCH (08:25)
[2022-03-10] MEDS: PYRAZINAMIDE 500 MG TABLET PO SCH (08:25)
[2022-03-10 11:01] VITALS: BP 106/58
[2022-03-10] MEDS: ACETAMINOPHEN 325 MG TABLET PO PRN (12:29)
[2022-03-10] MEDS: ALBUTEROL SULFATE 2.5 MG/0.5 ML NEB SOLUTION NEB PRN (14:15)
[2022-03-10] MEDS: IPRATROPIUM BROMIDE 0.5 MG/2.5 ML NEB SOLUTION NEB PRN (14:15)
[2022-03-10 15:54] VITALS: BP 103/63
[2022-03-10 21:01] VITALS: BP 106/68
[2022-03-11] VITALS (7 sets, daily range): BP systolic 99–140; BP diastolic 49–75
[2022-03-11] MEDS: ACETAMINOPHEN 325 MG TABLET PO PRN ×2 (00:15→05:35)
[2022-03-11] MEDS: ALBUMIN HUMAN 25%-25GM/100ML 100 ML IV SCH (05:36)
[2022-03-11] MEDS: SODIUM CHLORIDE 1 GM TABLET PO SCH ×4 (05:37→23:54)
[2022-03-11] MEDS: ALBUTEROL SULFATE 2.5 MG/0.5 ML NEB SOLUTION NEB PRN ×2 (05:56→12:33)
[2022-03-11] MEDS: IPRATROPIUM BROMIDE 0.5 MG/2.5 ML NEB SOLUTION NEB PRN ×2 (05:56→12:34)
[2022-03-11 06:24] LABS: ANION GAP 10 mmol/L (8-16); CALCIUM, TOTAL 8.9 mg/dL (8.8-10.5); CARBON DIOXIDE 25 mmol/L (22-29); CHLORIDE 98 mmol/L (98-107); GLOMERULAR FILTR. RATE CALC > 60 mL/min (>60); GLUCOSE,RANDOM 89 mg/dL (70-110); POTASSIUM 3.5 mmol/L (3.5-5.1); SODIUM SERUM 133 mmol/L (136-145); UREA NITROGEN, BLOOD 13 mg/dL (7-18)
[2022-03-11 06:45] LABS: BASOPHILS % (AUTO) 0.6 % (0.0-2.0); EOSINOPHILS % (AUTO) 2.5 % (1.0-6.0); HEMATOCRIT 22.1 % (41-53); HEMOGLOBIN 7.5 g/dL (13.5-17.5); LYMPHOCYTES # (AUTO) 0.3 K/uL (1.0-4.8); MEAN CORPUSCULAR HEMOGLOBIN 32.5 pg (26.0-34.0); MEAN CORPUSCULAR HGB CONC 34.1 G/dL (31.0-37.0); MEAN CORPUSCULAR VOLUME 95 fL (80-100); MONOCYTES # (AUTO) 0.4 K/uL (0.1-1.0); MONOCYTES % (AUTO) 3.7 % (2.0-9.0); PLATELET COUNT (AUTO) 308 K/uL (150-450); RED BLOOD CELL COUNT(AUTO) 2.32 MIL/uL (4.50-5.90)
[2022-03-11 06:56] LABS: NEUTROPHILS % (AUTO) 90.2 % (40.0-70.0)
[2022-03-11] MEDS: PYRAZINAMIDE 500 MG TABLET PO SCH (08:48)
[2022-03-11] MEDS: TAMSULOSIN HCL 0.4 MG CAPSULE PO SCH ×2 (08:49→21:23)
[2022-03-11] MEDS: ETHAMBUTOL HCL 400 MG TABLET PO SCH (08:49)
[2022-03-11] MEDS: ETHYL ALCOHOL 62% ANTISEPTIC NASAL SANITIZER 0.6 ML AMPUL NASAL SCH ×2 (08:49→21:21)
[2022-03-11] MEDS: ISONIAZID 300 MG TABLET PO SCH (08:49)
[2022-03-11] MEDS: RIFAMPIN 300 MG CAPSULE PO SCH (08:49)
[2022-03-11] MEDS: POTASSIUM CHLORIDE 20 MEQ ER TABLET PO SCH (08:49)
[2022-03-11] MEDS: MIDODRINE HCL 5 MG TABLET PO SCH ×3 (08:50→21:22)
[2022-03-11] MEDS: APIXABAN 5 MG TABLET PO SCH ×2 (08:50→21:22)
[2022-03-11] MEDS: LACTOBACILLUS ACIDOPHILUS/BULGARICUS TABLET PO SCH ×2 (08:50→21:20)
[2022-03-11] MEDS: PYRIDOXINE HCL 50 MG TABLET PO SCH (08:50)
[2022-03-11] MEDS: AMIODARONE HCL 200 MG TABLET PO SCH ×2 (08:50→21:21)
[2022-03-11] MEDS: METOPROLOL TARTRATE 25 MG TABLET PO SCH ×2 (08:52→21:22)
[2022-03-11] MEDS: TOLVAPTAN 15 MG TABLET PO SCH (08:52)
[2022-03-11] MEDS: NICOTINE 14 MG/24 HOUR PATCH TD SCH (08:52)
[2022-03-11] MEDS: NYSTATIN 500,000 UNITS/5 ML SUSPENSION UDCUP PO SCH ×3 (08:54→23:54)
[2022-03-11] MEDS: MULTIVITAMINS WITH MINERALS, THERAPEUTIC TABLET PO SCH (11:59)
[2022-03-11] MEDS: PANTOPRAZOLE SODIUM 40 MG DR TABLET PO SCH (12:00)
[2022-03-11] MEDS: MIRTAZAPINE 15 MG TABLET PO SCH (21:21)
[2022-03-12] MEDS: ACETAMINOPHEN 325 MG TABLET PO PRN (02:11)
[2022-03-12] MEDS: ALBUTEROL SULFATE 2.5 MG/0.5 ML NEB SOLUTION NEB PRN ×2 (02:23→09:59)
[2022-03-12] MEDS: IPRATROPIUM BROMIDE 0.5 MG/2.5 ML NEB SOLUTION NEB PRN ×2 (02:23→09:59)
[2022-03-12 04:45] VITALS: BP 122/72
[2022-03-12] MEDS: SODIUM CHLORIDE 1 GM TABLET PO SCH ×3 (06:42→17:38)
[2022-03-12 07:00] VITALS: BP 114/79
[2022-03-12 07:13] LABS: ANION GAP 8 mmol/L (8-16); CALCIUM, TOTAL 8.9 mg/dL (8.8-10.5); CARBON DIOXIDE 26 mmol/L (22-29); CHLORIDE 99 mmol/L (98-107); CREATININE 0.55 mg/dL (0.60-1.30); GLUCOSE,RANDOM 93 mg/dL (70-110); POTASSIUM 3.4 mmol/L (3.5-5.1); SODIUM SERUM 133 mmol/L (136-145); UREA NITROGEN, BLOOD 15 mg/dL (7-18)
[2022-03-12 07:14] LABS: GLOMERULAR FILTR. RATE CALC > 60 mL/min (>60)
[2022-03-12 07:16] LABS: BASOPHILS % (AUTO) 0.6 % (0.0-2.0); EOSINOPHILS % (AUTO) 0.7 % (1.0-6.0); HEMOGLOBIN 8.5 g/dL (13.5-17.5); LYMPHOCYTES # (AUTO) 0.3 K/uL (1.0-4.8); LYMPHOCYTES % (AUTO) 3.1 % (22.0-44.0); MEAN CORPUSCULAR HEMOGLOBIN 32.2 pg (26.0-34.0); MEAN CORPUSCULAR HGB CONC 33.9 G/dL (31.0-37.0); MEAN CORPUSCULAR VOLUME 95 fL (80-100); MONOCYTES # (AUTO) 0.4 K/uL (0.1-1.0); MONOCYTES % (AUTO) 3.6 % (2.0-9.0); NEUTROPHILS # (AUTO) 9.9 K/uL (1.8-7.7); PLATELET COUNT (AUTO) 343 K/uL (150-450); RED BLOOD CELL COUNT(AUTO) 2.64 MIL/uL (4.50-5.90); RED CELL DISTRIBUTION WIDTH 14.5 % (11.5-14.5)
[2022-03-12 07:21] LABS: % IRON SATURATION 17.1 % (30-44); IRON, SERUM 12 mcg/dL (50-175); TOTAL IRON BINDING CAPACITY 70 mcg/dL (250-450)
[2022-03-12] MEDS: PYRAZINAMIDE 500 MG TABLET PO SCH (09:14)
[2022-03-12] MEDS: LORazepam 0.5 MG TABLET PO PRN ×2 (09:14→17:38)
[2022-03-12] MEDS: METOPROLOL TARTRATE 25 MG TABLET PO SCH ×2 (09:30→20:11)
[2022-03-12] MEDS: AMIODARONE HCL 200 MG TABLET PO SCH ×2 (09:30→20:11)
[2022-03-12] MEDS: DIGOXIN 250 MCG/ML 2 ML AMP IVP SCH (09:31)
[2022-03-12 09:53] LABS: ABG BASE EXCESS -1.9 mmol/L (-2.0-3.0); ABG CARBOXYHEMOGLOBIN 1.3 % (0.0-1.5); ABG HCO3 23.3 mmol/L (22.0-26.0); ABG METHEMOGLOBIN 0.3 % (0.0-1.5); ABG OXYGEN CONTENT 11.4 mL/dL (15.0-23.0); ABG OXYGEN SATURATION 90.3 % (95.0-98.0); ABG OXYHEMOGLOBIN 88.9 % (94.0-100.0); ABG PCO2 29 mmHg (35-45); ABG PH 7.493 (7.35-7.450); ABG TOTAL HEMOGLOBIN 9.1 G/dL (12.0-18.0); PO2, ARTERIAL BG 56.5 mmHg (79.0-87.0); SOURCE, BLOOD GAS ARTERIAL; TEMPERATURE, FAHRENHEIT, BG 98.6 FAHREN (96.0-98.6)
[2022-03-12 09:55] LABS: SITE, BLOOD GAS RT RADIAL
[2022-03-12 09:56] LABS: ABG A-A DIFF O2 195.9 mmHg (10-20.0); O2 DEVICE,BLOOD GAS CANNULA (ROOM AIR)
[2022-03-12] MEDS: POTASSIUM CHLORIDE 20 MEQ ER TABLET PO PRN (10:32)
[2022-03-12] MEDS: MIDODRINE HCL 5 MG TABLET PO SCH ×3 (10:33→20:11)
[2022-03-12] MEDS: APIXABAN 5 MG TABLET PO SCH ×2 (10:33→20:11)
[2022-03-12] MEDS: NICOTINE 14 MG/24 HOUR PATCH TD SCH (10:36)
[2022-03-12] MEDS: RIFAMPIN 300 MG CAPSULE PO SCH (10:37)
[2022-03-12] MEDS: ETHAMBUTOL HCL 400 MG TABLET PO SCH (10:37)
[2022-03-12] MEDS: TAMSULOSIN HCL 0.4 MG CAPSULE PO SCH ×2 (10:38→20:11)
[2022-03-12] MEDS: PYRIDOXINE HCL 50 MG TABLET PO SCH (10:38)
[2022-03-12] MEDS: ISONIAZID 300 MG TABLET PO SCH (10:38)
[2022-03-12] MEDS: MULTIVITAMINS WITH MINERALS, THERAPEUTIC TABLET PO SCH (10:38)
[2022-03-12] MEDS: PANTOPRAZOLE SODIUM 40 MG DR TABLET PO SCH (10:39)
[2022-03-12] MEDS: LACTOBACILLUS ACIDOPHILUS/BULGARICUS TABLET PO SCH ×2 (10:43→20:11)
[2022-03-12] MEDS: NYSTATIN 500,000 UNITS/5 ML SUSPENSION UDCUP PO SCH ×2 (10:43→15:47)
[2022-03-12] MEDS: ETHYL ALCOHOL 62% ANTISEPTIC NASAL SANITIZER 0.6 ML AMPUL NASAL SCH ×2 (10:43→20:10)
[2022-03-12] MEDS ORDERED: SODIUM CHLORIDE 0.9% 1,000 ML ONE (12:15)
[2022-03-12] MEDS: IRON SUCROSE COMPLEX 200 MG in SODIUM CHLORIDE 0.9% 100 ML IV SCH (12:17)
[2022-03-12 12:50] VITALS: BP 124/68
[2022-03-12] MEDS ORDERED: DILTIAZEM HCL 5 MG/ML 5 ML VIAL IVP ONE ×2 (13:45→17:30)
[2022-03-12 16:25] VITALS: BP 123/79
[2022-03-12] MEDS: FERROUS SULFATE 325 MG EC TABLET PO SCH (17:38)
[2022-03-12] MEDS: DILTIAZEM HCL 125 MG in DEXTROSE 5%-WATER 100 ML IV SCH (17:39)
[2022-03-12] MEDS: MIRTAZAPINE 15 MG TABLET PO SCH (20:12)
[2022-03-12 20:30] VITALS: BP 136/74
[2022-03-13] MEDS: NYSTATIN 500,000 UNITS/5 ML SUSPENSION UDCUP PO SCH ×4 (00:11→23:32)
[2022-03-13] MEDS: SODIUM CHLORIDE 1 GM TABLET PO SCH ×5 (00:11→23:32)
[2022-03-13 00:17] VITALS: BP 116/69
[2022-03-13 05:29] VITALS: BP 123/73
[2022-03-13 07:45] VITALS: BP 106/65
[2022-03-13] MEDS: FERROUS SULFATE 325 MG EC TABLET PO SCH ×2 (10:13→18:00)
[2022-03-13] MEDS: PYRAZINAMIDE 500 MG TABLET PO SCH (10:13)
[2022-03-13] MEDS: LACTOBACILLUS ACIDOPHILUS/BULGARICUS TABLET PO SCH ×2 (10:13→21:35)
[2022-03-13] MEDS: RIFAMPIN 300 MG CAPSULE PO SCH (10:14)
[2022-03-13] MEDS: METOPROLOL TARTRATE 25 MG TABLET PO SCH (10:14)
[2022-03-13] MEDS: ETHAMBUTOL HCL 400 MG TABLET PO SCH (10:14)
[2022-03-13] MEDS: PYRIDOXINE HCL 50 MG TABLET PO SCH (10:15)
[2022-03-13] MEDS: ISONIAZID 300 MG TABLET PO SCH (10:15)
[2022-03-13] MEDS: PANTOPRAZOLE SODIUM 40 MG DR TABLET PO SCH (10:15)
[2022-03-13] MEDS: MULTIVITAMINS WITH MINERALS, THERAPEUTIC TABLET PO SCH (10:15)
[2022-03-13] MEDS: MIDODRINE HCL 5 MG TABLET PO SCH ×3 (10:16→21:36)
[2022-03-13] MEDS: APIXABAN 5 MG TABLET PO SCH ×2 (10:16→21:35)
[2022-03-13] MEDS: AMIODARONE HCL 200 MG TABLET PO SCH ×2 (10:16→21:35)
[2022-03-13] MEDS: ETHYL ALCOHOL 62% ANTISEPTIC NASAL SANITIZER 0.6 ML AMPUL NASAL SCH ×2 (10:16→21:35)
[2022-03-13] MEDS: TAMSULOSIN HCL 0.4 MG CAPSULE PO SCH ×2 (10:16→21:35)
[2022-03-13] MEDS: DIGOXIN 250 MCG/ML 2 ML AMP IVP SCH (10:17)
[2022-03-13] MEDS: TOLVAPTAN 15 MG TABLET PO SCH (10:18)
[2022-03-13] MEDS: NICOTINE 14 MG/24 HOUR PATCH TD SCH (10:19)
[2022-03-13] MEDS: IPRATROPIUM BROMIDE 0.5 MG/2.5 ML NEB SOLUTION NEB PRN ×2 (10:49→20:54)
[2022-03-13] MEDS: ALBUTEROL SULFATE 2.5 MG/0.5 ML NEB SOLUTION NEB PRN ×2 (10:49→20:54)
[2022-03-13 11:45] LABS: ALBUMIN 3.4 g/dL (3.4-5.0); BILIRUBIN,DIRECT 0.3 mg/dL (0.00-0.20); BILIRUBIN,TOTAL 0.8 mg/dL (0.1-1.0); TOTAL PROTEIN, SERUM 6.8 g/dL (6.4-8.2)
[2022-03-13] MEDS: BENZONATATE 100 MG CAPSULE PO SCH ×3 (11:45→21:36)
[2022-03-13] MEDS: IRON SUCROSE COMPLEX 200 MG in SODIUM CHLORIDE 0.9% 100 ML IV SCH (11:48)
[2022-03-13 11:53] VITALS: BP 120/74
[2022-03-13] MEDS ORDERED: SODIUM CHLORIDE 0.9% 250 ML IV ONE (13:03)
[2022-03-13 16:00] VITALS: BP 124/70
[2022-03-13] MEDS: DILTIAZEM HCL 125 MG in DEXTROSE 5%-WATER 100 ML IV SCH (17:17)
[2022-03-13 20:38] VITALS: BP 143/83
[2022-03-13] MEDS: MIRTAZAPINE 15 MG TABLET PO SCH (21:36)
[2022-03-13] MEDS: ACETAMINOPHEN 325 MG TABLET PO PRN (23:37)
[2022-03-14] VITALS: BP 117/74
[2022-03-14 05:25] VITALS: BP 113/78
[2022-03-14] MEDS: SODIUM CHLORIDE 1 GM TABLET PO SCH ×4 (06:00→23:51)
[2022-03-14 07:40] VITALS: BP 108/70
[2022-03-14] MEDS: FERROUS SULFATE 325 MG EC TABLET PO SCH ×2 (09:24→18:20)
[2022-03-14] MEDS: NYSTATIN 500,000 UNITS/5 ML SUSPENSION UDCUP PO SCH ×3 (09:24→23:51)
[2022-03-14] MEDS: NICOTINE 14 MG/24 HOUR PATCH TD SCH (09:24)
[2022-03-14] MEDS: PYRAZINAMIDE 500 MG TABLET PO SCH (09:25)
[2022-03-14] MEDS: LACTOBACILLUS ACIDOPHILUS/BULGARICUS TABLET PO SCH ×2 (09:25→21:48)
[2022-03-14] MEDS: MULTIVITAMINS WITH MINERALS, THERAPEUTIC TABLET PO SCH (09:25)
[2022-03-14] MEDS: ETHAMBUTOL HCL 400 MG TABLET PO SCH (09:25)
[2022-03-14] MEDS: BENZONATATE 100 MG CAPSULE PO SCH ×3 (09:25→21:48)
[2022-03-14] MEDS: APIXABAN 5 MG TABLET PO SCH ×2 (09:26→21:48)
[2022-03-14] MEDS: ISONIAZID 300 MG TABLET PO SCH (09:26)
[2022-03-14] MEDS: AMIODARONE HCL 200 MG TABLET PO SCH ×2 (09:26→21:47)
[2022-03-14] MEDS: ETHYL ALCOHOL 62% ANTISEPTIC NASAL SANITIZER 0.6 ML AMPUL NASAL SCH ×2 (09:26→21:48)
[2022-03-14] MEDS: MIDODRINE HCL 5 MG TABLET PO SCH ×3 (09:26→21:48)
[2022-03-14] MEDS: PANTOPRAZOLE SODIUM 40 MG DR TABLET PO SCH (09:26)
[2022-03-14] MEDS: PYRIDOXINE HCL 50 MG TABLET PO SCH (09:26)
[2022-03-14] MEDS: TAMSULOSIN HCL 0.4 MG CAPSULE PO SCH ×2 (09:27→21:48)
[2022-03-14] MEDS: RIFAMPIN 300 MG CAPSULE PO SCH (09:27)
[2022-03-14] MEDS: DIGOXIN 250 MCG/ML 2 ML AMP IVP SCH (09:30)
[2022-03-14] MEDS: DILTIAZEM HCL 125 MG in DEXTROSE 5%-WATER 100 ML IV SCH (09:30)
[2022-03-14 10:47] LABS: ANION GAP 11 mmol/L (8-16); CALCIUM, TOTAL 8.6 mg/dL (8.8-10.5); CARBON DIOXIDE 26 mmol/L (22-29); CHLORIDE 100 mmol/L (98-107); CREATININE 0.52 mg/dL (0.60-1.30); GLUCOSE,RANDOM 110 mg/dL (70-110); POTASSIUM 3.3 mmol/L (3.5-5.1); SODIUM SERUM 137 mmol/L (136-145); UREA NITROGEN, BLOOD 18 mg/dL (7-18)
[2022-03-14 10:50] LABS: PHOSPHORUS 2.9 mg/dL (2.5-4.9)
[2022-03-14 10:51] LABS: GLOMERULAR FILTR. RATE CALC > 60 mL/min (>60)
[2022-03-14] MEDS ORDERED: POTASSIUM CHL 10 MEQ/WATER 50 ML IV PRN (11:30)
[2022-03-14] MEDS ORDERED: POTASSIUM CHLORIDE 20 MEQ ER TABLET PO PRN (11:30)
[2022-03-14 11:45] VITALS: BP 107/63
[2022-03-14] MEDS: IRON SUCROSE COMPLEX 200 MG in SODIUM CHLORIDE 0.9% 100 ML IV SCH (12:21)
[2022-03-14 16:35] VITALS: BP 137/81
[2022-03-14 20:36] VITALS: BP 133/79
[2022-03-14] MEDS: POTASSIUM CHLORIDE 20 MEQ ER TABLET PO PRN (21:47)
[2022-03-14] MEDS: ACETAMINOPHEN 325 MG TABLET PO PRN (21:47)
[2022-03-14] MEDS: MIRTAZAPINE 15 MG TABLET PO SCH (21:48)
[2022-03-14] MEDS: LORazepam 2 MG/ML VIAL IVP PRN (21:48)
[2022-03-15] VITALS (7 sets, daily range): BP systolic 96–125; BP diastolic 55–89
[2022-03-15] MEDS: SODIUM CHLORIDE 1 GM TABLET PO SCH ×3 (04:58→16:47)
[2022-03-15] MEDS: LORazepam 2 MG/ML VIAL IVP PRN ×3 (05:05→19:05)
[2022-03-15 06:12] LABS: ANION GAP 1 mmol/L (8-16); CALCIUM, TOTAL 8.5 mg/dL (8.8-10.5); CARBON DIOXIDE 26 mmol/L (22-29); CHLORIDE 102 mmol/L (98-107); CREATININE 0.56 mg/dL (0.60-1.30); GLUCOSE,RANDOM 93 mg/dL (70-110); PHOSPHORUS 2.6 mg/dL (2.5-4.9); POTASSIUM 3.2 mmol/L (3.5-5.1); SODIUM SERUM 129 mmol/L (136-145); UREA NITROGEN, BLOOD 16 mg/dL (7-18)
[2022-03-15 06:23] LABS: GLOMERULAR FILTR. RATE CALC > 60 mL/min (>60)
[2022-03-15] MEDS: DIGOXIN 250 MCG/ML 2 ML AMP IVP SCH (09:44)
[2022-03-15] MEDS: TAMSULOSIN HCL 0.4 MG CAPSULE PO SCH ×2 (09:44→21:00)
[2022-03-15] MEDS: PYRIDOXINE HCL 50 MG TABLET PO SCH (09:45)
[2022-03-15] MEDS: PANTOPRAZOLE SODIUM 40 MG DR TABLET PO SCH (09:45)
[2022-03-15] MEDS: MULTIVITAMINS WITH MINERALS, THERAPEUTIC TABLET PO SCH (09:45)
[2022-03-15] MEDS: BENZONATATE 100 MG CAPSULE PO SCH ×3 (09:45→21:00)
[2022-03-15] MEDS: PYRAZINAMIDE 500 MG TABLET PO SCH (09:45)
[2022-03-15] MEDS: RIFAMPIN 300 MG CAPSULE PO SCH (09:45)
[2022-03-15] MEDS: MIDODRINE HCL 5 MG TABLET PO SCH ×3 (09:46→20:46)
[2022-03-15] MEDS: NYSTATIN 500,000 UNITS/5 ML SUSPENSION UDCUP PO SCH ×2 (09:46→16:00)
[2022-03-15] MEDS: FERROUS SULFATE 325 MG EC TABLET PO SCH ×2 (09:46→18:00)
[2022-03-15] MEDS: ETHYL ALCOHOL 62% ANTISEPTIC NASAL SANITIZER 0.6 ML AMPUL NASAL SCH ×2 (09:46→21:00)
[2022-03-15] MEDS: ETHAMBUTOL HCL 400 MG TABLET PO SCH (09:46)
[2022-03-15] MEDS: ISONIAZID 300 MG TABLET PO SCH (09:46)
[2022-03-15] MEDS: AMIODARONE HCL 200 MG TABLET PO SCH ×2 (09:46→20:46)
[2022-03-15] MEDS: LACTOBACILLUS ACIDOPHILUS/BULGARICUS TABLET PO SCH ×2 (09:46→21:00)
[2022-03-15] MEDS: APIXABAN 5 MG TABLET PO SCH ×2 (09:46→20:46)
[2022-03-15] MEDS: NICOTINE 14 MG/24 HOUR PATCH TD SCH (09:47)
[2022-03-15] MEDS: ACETAMINOPHEN 325 MG TABLET PO PRN ×2 (09:47→20:46)
[2022-03-15] MEDS: TOLVAPTAN 15 MG TABLET PO SCH (10:00)
[2022-03-15] MEDS ORDERED: *CLINICAL-PERIPHERAL PARENTERAL NUTRITION DOSING CLINICAL ONE (10:45)
[2022-03-15] MEDS: IRON SUCROSE COMPLEX 200 MG in SODIUM CHLORIDE 0.9% 100 ML IV SCH (12:43)
[2022-03-15] MEDS ORDERED: POTASSIUM CHLORIDE 20 MEQ ER TABLET PO ONE (14:00)
[2022-03-15] MEDS ORDERED: SODIUM CHLORIDE 0.9% 250 ML IV ONE (14:56)
[2022-03-15] MEDS: POTASSIUM CHL 10 MEQ/WATER 50 ML IV SCH ×2 (15:02→16:46)
[2022-03-15] MEDS: MIRTAZAPINE 15 MG TABLET PO SCH (20:47)
[2022-03-15] MEDS: ACETYLCYSTEINE 10% 100 MG/ML 4 ML NEB SOLUTION NEB SCH ×2 (20:57→21:05)
[2022-03-15] MEDS: ALBUTEROL SULFATE 2.5 MG/0.5 ML NEB SOLUTION NEB SCH (20:57)
[2022-03-15] MEDS: IPRATROPIUM BROMIDE 0.5 MG/2.5 ML NEB SOLUTION NEB SCH (20:57)
[2022-03-15] MEDS: DILTIAZEM HCL 125 MG in DEXTROSE 5%-WATER 100 ML IV SCH (21:00)
[2022-03-15] MEDS ORDERED: PPN SOLUTION 1 EA, SODIUM CHLORIDE 70 MEQ, SODIUM PHOS,M-BASIC-D-BASIC 30 MEQ, POTASSIU... IV SCH ×9 (22:00)
[2022-03-16 00:50] VITALS: BP 96/61
[2022-03-16 04:00] VITALS: BP 114/69
[2022-03-16] MEDS: LORazepam 2 MG/ML VIAL IVP PRN ×3 (04:07→20:00)
[2022-03-16] MEDS ORDERED: PANTOPRAZOLE SODIUM 40 MG/VIAL IVP ONE (04:30)
[2022-03-16] MEDS: PANTOPRAZOLE SODIUM 80 MG in SODIUM CHLORIDE 0.9% 100 ML IV SCH ×2 (05:12→15:08)
[2022-03-16 06:24] LABS: BASOPHILS % (AUTO) 0.7 % (0.0-2.0); EOSINOPHILS % (AUTO) 1.7 % (1.0-6.0); HEMOGLOBIN 8.4 g/dL (13.5-17.5); LYMPHOCYTES # (AUTO) 0.5 K/uL (1.0-4.8); LYMPHOCYTES % (AUTO) 4.2 % (22.0-44.0); MEAN CORPUSCULAR HEMOGLOBIN 31.6 pg (26.0-34.0); MEAN CORPUSCULAR HGB CONC 32.4 G/dL (31.0-37.0); MEAN CORPUSCULAR VOLUME 97 fL (80-100); MONOCYTES # (AUTO) 0.5 K/uL (0.1-1.0); MONOCYTES % (AUTO) 4.8 % (2.0-9.0); PLATELET COUNT (AUTO) 399 K/uL (150-450); RED BLOOD CELL COUNT(AUTO) 2.67 MIL/uL (4.50-5.90); RED CELL DISTRIBUTION WIDTH 14.8 % (11.5-14.5)
[2022-03-16 06:34] LABS: ANION GAP 9 mmol/L (8-16); CALCIUM, TOTAL 8.7 mg/dL (8.8-10.5); CARBON DIOXIDE 27 mmol/L (22-29); CHLORIDE 102 mmol/L (98-107); CREATININE 0.67 mg/dL (0.60-1.30); GLUCOSE,RANDOM 104 mg/dL (70-110); PHOSPHORUS 2.5 mg/dL (2.5-4.9); POTASSIUM 3.9 mmol/L (3.5-5.1); SODIUM SERUM 138 mmol/L (136-145); UREA NITROGEN, BLOOD 21 mg/dL (7-18)
[2022-03-16 06:35] LABS: NEUTROPHILS % (AUTO) 88.6 % (40.0-70.0)
[2022-03-16 06:57] LABS: GLOMERULAR FILTR. RATE CALC > 60 mL/min (>60)
[2022-03-16 07:42] VITALS: BP 119/63
[2022-03-16] MEDS: NICOTINE 14 MG/24 HOUR PATCH TD SCH (09:00)
[2022-03-16] MEDS: IPRATROPIUM BROMIDE 0.5 MG/2.5 ML NEB SOLUTION NEB SCH ×3 (09:09→20:48)
[2022-03-16] MEDS: ALBUTEROL SULFATE 2.5 MG/0.5 ML NEB SOLUTION NEB SCH ×3 (09:09→20:48)
[2022-03-16] MEDS: NYSTATIN 500,000 UNITS/5 ML SUSPENSION UDCUP PO SCH ×4 (09:24→23:29)
[2022-03-16] MEDS: LACTOBACILLUS ACIDOPHILUS/BULGARICUS TABLET PO SCH ×2 (09:24→20:00)
[2022-03-16] MEDS: ETHYL ALCOHOL 62% ANTISEPTIC NASAL SANITIZER 0.6 ML AMPUL NASAL SCH ×2 (09:24→21:00)
[2022-03-16] MEDS: DIGOXIN 250 MCG/ML 2 ML AMP IVP SCH (09:24)
[2022-03-16] MEDS: SODIUM CHLORIDE 1 GM TABLET PO SCH ×4 (09:24→23:29)
[2022-03-16] MEDS: TAMSULOSIN HCL 0.4 MG CAPSULE PO SCH ×2 (09:24→20:01)
[2022-03-16] MEDS: FERROUS SULFATE 325 MG EC TABLET PO SCH ×2 (09:24→18:08)
[2022-03-16] MEDS: ETHAMBUTOL HCL 400 MG TABLET PO SCH (09:25)
[2022-03-16] MEDS: MIDODRINE HCL 5 MG TABLET PO SCH ×3 (09:25→20:01)
[2022-03-16] MEDS: ISONIAZID 300 MG TABLET PO SCH (09:25)
[2022-03-16] MEDS: RIFAMPIN 300 MG CAPSULE PO SCH (09:25)
[2022-03-16] MEDS: PYRAZINAMIDE 500 MG TABLET PO SCH (09:25)
[2022-03-16] MEDS: PYRIDOXINE HCL 50 MG TABLET PO SCH (09:25)
[2022-03-16] MEDS: BENZONATATE 100 MG CAPSULE PO SCH ×3 (09:25→20:01)
[2022-03-16] MEDS: MULTIVITAMINS WITH MINERALS, THERAPEUTIC TABLET PO SCH (09:25)
[2022-03-16] MEDS: AMIODARONE HCL 200 MG TABLET PO SCH ×2 (09:25→20:01)
[2022-03-16] MEDS: ACETYLCYSTEINE 10% 100 MG/ML 4 ML NEB SOLUTION NEB SCH ×3 (09:45→20:48)
[2022-03-16 10:36] VITALS: BP 145/76
[2022-03-16] MEDS ORDERED: DILTIAZEM HCL 5 MG/ML 5 ML VIAL IVP ONE (11:45)
[2022-03-16] MEDS: IRON SUCROSE COMPLEX 200 MG in SODIUM CHLORIDE 0.9% 100 ML IV SCH (12:10)
[2022-03-16] MEDS: DILTIAZEM HCL 125 MG in DEXTROSE 5%-WATER 100 ML IV SCH (12:18)
[2022-03-16 13:21] LABS: BASOPHILS % (AUTO) 1.5 % (0.0-2.0); EOSINOPHILS % (AUTO) 1.6 % (1.0-6.0); HEMATOCRIT 25.6 % (41-53); HEMOGLOBIN 8.4 g/dL (13.5-17.5); LYMPHOCYTES # (AUTO) 0.5 K/uL (1.0-4.8); LYMPHOCYTES % (AUTO) 3.5 % (22.0-44.0); MEAN CORPUSCULAR HEMOGLOBIN 31.8 pg (26.0-34.0); MEAN CORPUSCULAR HGB CONC 32.7 G/dL (31.0-37.0); MEAN CORPUSCULAR VOLUME 97 fL (80-100); MONOCYTES # (AUTO) 0.6 K/uL (0.1-1.0); MONOCYTES % (AUTO) 4.8 % (2.0-9.0); NEUTROPHILS # (AUTO) 11.7 K/uL (1.8-7.7); PLATELET COUNT (AUTO) 368 K/uL (150-450); RED BLOOD CELL COUNT(AUTO) 2.63 MIL/uL (4.50-5.90); RED CELL DISTRIBUTION WIDTH 14.4 % (11.5-14.5)
[2022-03-16 13:22] LABS: NEUTROPHILS % (AUTO) 88.6 % (40.0-70.0)
[2022-03-16] MEDS ORDERED: FUROSEMIDE 20 MG/2 ML VIAL IVP ONE (14:00)
[2022-03-16 15:34] VITALS: BP 125/74
[2022-03-16] MEDS: MIRTAZAPINE 15 MG TABLET PO SCH (20:00)
[2022-03-16 20:43] VITALS: BP 114/60
[2022-03-16] MEDS ORDERED: SODIUM PHOS M BASIC D BASIC IV SCH ×9 (22:00)
[2022-03-16] MEDS ORDERED: SODIUM CHLORIDE IV SCH ×9 (22:00)
[2022-03-16] MEDS ORDERED: PPN IV SCH ×9 (22:00)
[2022-03-16] MEDS ORDERED: [UNRECOGNIZED DRUG - OTHER] IV SCH ×9 (22:00)
[2022-03-16] MEDS: ACETAMINOPHEN 325 MG TABLET PO PRN (23:29)
[2022-03-17] MEDS: PANTOPRAZOLE SODIUM 80 MG in SODIUM CHLORIDE 0.9% 100 ML IV SCH ×2 (01:04→11:56)
[2022-03-17 04:36] VITALS: BP 98/64
[2022-03-17] MEDS: DILTIAZEM HCL 125 MG in DEXTROSE 5%-WATER 100 ML IV SCH ×2 (06:26→22:22)
[2022-03-17 07:26] VITALS: BP 109/61
[2022-03-17 07:36] LABS: ANION GAP 3 mmol/L (8-16); CALCIUM, TOTAL 8.8 mg/dL (8.8-10.5); CARBON DIOXIDE 30 mmol/L (22-29); CHLORIDE 103 mmol/L (98-107); CREATININE 0.64 mg/dL (0.60-1.30); GLUCOSE,RANDOM 113 mg/dL (70-110); PHOSPHORUS 2.5 mg/dL (2.5-4.9); POTASSIUM 3.4 mmol/L (3.5-5.1); SODIUM SERUM 136 mmol/L (136-145); UREA NITROGEN, BLOOD 18 mg/dL (7-18)
[2022-03-17 07:42] LABS: GLOMERULAR FILTR. RATE CALC > 60 mL/min (>60)
[2022-03-17] MEDS: NYSTATIN 500,000 UNITS/5 ML SUSPENSION UDCUP PO SCH ×2 (08:00→16:00)
[2022-03-17] MEDS: PYRIDOXINE HCL 50 MG TABLET PO SCH (08:27)
[2022-03-17] MEDS: AMIODARONE HCL 200 MG TABLET PO SCH ×2 (08:27→22:22)
[2022-03-17] MEDS: MULTIVITAMINS WITH MINERALS, THERAPEUTIC TABLET PO SCH (08:27)
[2022-03-17] MEDS: SODIUM CHLORIDE 1 GM TABLET PO SCH ×3 (08:27→22:21)
[2022-03-17] MEDS: ISONIAZID 300 MG TABLET PO SCH (08:28)
[2022-03-17] MEDS: LACTOBACILLUS ACIDOPHILUS/BULGARICUS TABLET PO SCH ×2 (08:28→21:00)
[2022-03-17] MEDS: FERROUS SULFATE 325 MG EC TABLET PO SCH ×2 (08:29→18:34)
[2022-03-17] MEDS: PYRAZINAMIDE 500 MG TABLET PO SCH (08:29)
[2022-03-17] MEDS: ACETAMINOPHEN 325 MG TABLET PO PRN ×2 (08:29→22:22)
[2022-03-17] MEDS: MIDODRINE HCL 5 MG TABLET PO SCH ×3 (08:29→21:00)
[2022-03-17] MEDS: TAMSULOSIN HCL 0.4 MG CAPSULE PO SCH ×2 (08:29→21:00)
[2022-03-17] MEDS: ETHAMBUTOL HCL 400 MG TABLET PO SCH (08:29)
[2022-03-17] MEDS: BENZONATATE 100 MG CAPSULE PO SCH ×3 (08:29→21:00)
[2022-03-17] MEDS: DIGOXIN 250 MCG/ML 2 ML AMP IVP SCH (08:30)
[2022-03-17] MEDS: LORazepam 2 MG/ML VIAL IVP PRN ×2 (08:30→22:22)
[2022-03-17] MEDS: RIFAMPIN 300 MG CAPSULE PO SCH (08:39)
[2022-03-17] MEDS: ETHYL ALCOHOL 62% ANTISEPTIC NASAL SANITIZER 0.6 ML AMPUL NASAL SCH ×2 (09:00→21:00)
[2022-03-17] MEDS: NICOTINE 14 MG/24 HOUR PATCH TD SCH (09:00)
[2022-03-17] MEDS: ACETYLCYSTEINE 10% 100 MG/ML 4 ML NEB SOLUTION NEB SCH ×3 (09:02→20:02)
[2022-03-17] MEDS: ALBUTEROL SULFATE 2.5 MG/0.5 ML NEB SOLUTION NEB SCH ×3 (09:02→20:02)
[2022-03-17] MEDS: IPRATROPIUM BROMIDE 0.5 MG/2.5 ML NEB SOLUTION NEB SCH ×3 (09:03→20:02)
[2022-03-17] MEDS ORDERED: FUROSEMIDE 20 MG/2 ML VIAL IVP ONE (11:30)
[2022-03-17 11:36] VITALS: BP 119/55
[2022-03-17 14:40] VITALS: BP 113/56
[2022-03-17 20:52] VITALS: BP 114/57
[2022-03-17] MEDS: MIRTAZAPINE 15 MG TABLET PO SCH (21:00)
[2022-03-17] MEDS ORDERED: SODIUM PHOS M BASIC D BASIC IV SCH ×9 (22:00)
[2022-03-17] MEDS ORDERED: PPN IV SCH ×9 (22:00)
[2022-03-17] MEDS ORDERED: [UNRECOGNIZED DRUG - OTHER] IV SCH ×9 (22:00)
[2022-03-17] MEDS ORDERED: SODIUM CHLORIDE IV SCH ×9 (22:00)
[2022-03-18 00:23] VITALS: BP 99/54
[2022-03-18] MEDS ORDERED: 0.9% SODIUM CHLORIDE 15 ML NEB SOLUTION NEB ONE (02:53)
[2022-03-18] MEDS ORDERED: SODIUM CHLORIDE 3% 15 ML NEB SOLUTION NEB ONE (03:09)
[2022-03-18 06:10] VITALS: BP 136/62
[2022-03-18 07:20] LABS: ANION GAP 4 mmol/L (8-16); CALCIUM, TOTAL 8.4 mg/dL (8.8-10.5); CARBON DIOXIDE 31 mmol/L (22-29); CHLORIDE 103 mmol/L (98-107); CREATININE 0.57 mg/dL (0.60-1.30); GLUCOSE,RANDOM 109 mg/dL (70-110); PHOSPHORUS 2.6 mg/dL (2.5-4.9); POTASSIUM 3.3 mmol/L (3.5-5.1); SODIUM SERUM 138 mmol/L (136-145); UREA NITROGEN, BLOOD 23 mg/dL (7-18)
[2022-03-18 07:22] LABS: GLOMERULAR FILTR. RATE CALC > 60 mL/min (>60)
[2022-03-18] MEDS: ALBUTEROL SULFATE 2.5 MG/0.5 ML NEB SOLUTION NEB SCH ×3 (08:22→21:20)
[2022-03-18] MEDS: IPRATROPIUM BROMIDE 0.5 MG/2.5 ML NEB SOLUTION NEB SCH ×3 (08:23→21:20)
[2022-03-18] MEDS: ACETYLCYSTEINE 10% 100 MG/ML 4 ML NEB SOLUTION NEB SCH ×3 (08:42→21:21)
[2022-03-18 09:03] VITALS: BP 125/57
[2022-03-18] MEDS: BENZONATATE 100 MG CAPSULE PO SCH ×3 (09:41→22:37)
[2022-03-18] MEDS: TAMSULOSIN HCL 0.4 MG CAPSULE PO SCH ×2 (09:41→22:36)
[2022-03-18] MEDS: PANTOPRAZOLE SODIUM 40 MG/VIAL IVP SCH (09:41)
[2022-03-18] MEDS: FERROUS SULFATE 325 MG EC TABLET PO SCH ×2 (09:42→17:58)
[2022-03-18] MEDS: AMIODARONE HCL 200 MG TABLET PO SCH ×2 (09:42→22:36)
[2022-03-18] MEDS: MULTIVITAMINS WITH MINERALS, THERAPEUTIC TABLET PO SCH (09:42)
[2022-03-18] MEDS: SODIUM CHLORIDE 1 GM TABLET PO SCH ×3 (09:42→22:36)
[2022-03-18] MEDS: LACTOBACILLUS ACIDOPHILUS/BULGARICUS TABLET PO SCH ×2 (09:43→22:37)
[2022-03-18] MEDS: DIGOXIN 250 MCG/ML 2 ML AMP IVP SCH (09:43)
[2022-03-18] MEDS: PYRAZINAMIDE 500 MG TABLET PO SCH (09:43)
[2022-03-18] MEDS: PYRIDOXINE HCL 50 MG TABLET PO SCH (09:44)
[2022-03-18] MEDS: MIDODRINE HCL 5 MG TABLET PO SCH ×3 (09:44→22:36)
[2022-03-18] MEDS: ISONIAZID 300 MG TABLET PO SCH (09:45)
[2022-03-18] MEDS: NYSTATIN 500,000 UNITS/5 ML SUSPENSION UDCUP PO SCH ×4 (09:45→22:38)
[2022-03-18] MEDS: ETHAMBUTOL HCL 400 MG TABLET PO SCH (09:45)
[2022-03-18] MEDS: RIFAMPIN 300 MG CAPSULE PO SCH (09:45)
[2022-03-18] MEDS: POTASSIUM CHL 10 MEQ/WATER 50 ML IV SCH ×3 (09:46→13:14)
[2022-03-18] MEDS: NICOTINE 14 MG/24 HOUR PATCH TD SCH (09:47)
[2022-03-18] MEDS: ETHYL ALCOHOL 62% ANTISEPTIC NASAL SANITIZER 0.6 ML AMPUL NASAL SCH ×2 (09:51→21:00)
[2022-03-18 11:40] VITALS: BP 126/56
[2022-03-18] MEDS: APIXABAN 2.5 MG TABLET PO SCH ×2 (11:50→22:37)
[2022-03-18 14:59] VITALS: BP 134/74
[2022-03-18] MEDS: DILTIAZEM HCL 125 MG in DEXTROSE 5%-WATER 100 ML IV SCH (15:14)
[2022-03-18] MEDS ORDERED: FUROSEMIDE 20 MG/2 ML VIAL IVP ONE (16:00)
[2022-03-18] MEDS: DILTIAZEM HCL 30 MG TABLET PO SCH (16:58)
[2022-03-18 20:49] VITALS: BP 113/57
[2022-03-18] MEDS ORDERED: [UNRECOGNIZED DRUG - OTHER] IV SCH ×9 (22:00)
[2022-03-18] MEDS ORDERED: SODIUM CHLORIDE IV SCH ×9 (22:00)
[2022-03-18] MEDS ORDERED: PPN IV SCH ×9 (22:00)
[2022-03-18] MEDS ORDERED: SODIUM PHOS M BASIC D BASIC IV SCH ×9 (22:00)
[2022-03-18] MEDS: MIRTAZAPINE 15 MG TABLET PO SCH (22:36)
[2022-03-18] MEDS: LOPERAMIDE HCL 2 MG CAPSULE PO PRN (22:36)
[2022-03-18] MEDS: LORazepam 2 MG/ML VIAL IVP PRN (22:37)
[2022-03-19] MEDS: DILTIAZEM HCL 30 MG TABLET PO SCH ×4 (01:15→17:27)
[2022-03-19 06:24] LABS: ANION GAP 10 mmol/L (8-16); CALCIUM, TOTAL 8.2 mg/dL (8.8-10.5); CARBON DIOXIDE 27 mmol/L (22-29); CHLORIDE 101 mmol/L (98-107); CREATININE 0.55 mg/dL (0.60-1.30); GLUCOSE,RANDOM 104 mg/dL (70-110); PHOSPHORUS 2.1 mg/dL (2.5-4.9); POTASSIUM 3.3 mmol/L (3.5-5.1); SODIUM SERUM 138 mmol/L (136-145); UREA NITROGEN, BLOOD 20 mg/dL (7-18)
[2022-03-19 06:26] LABS: GLOMERULAR FILTR. RATE CALC > 60 mL/min (>60)
[2022-03-19 06:43] VITALS: BP 116/50
[2022-03-19 07:50] VITALS: BP 98/54
[2022-03-19] MEDS: SODIUM CHLORIDE 1 GM TABLET PO SCH ×2 (08:34→16:03)
[2022-03-19] MEDS: MULTIVITAMINS WITH MINERALS, THERAPEUTIC TABLET PO SCH (08:37)
[2022-03-19] MEDS: AMIODARONE HCL 200 MG TABLET PO SCH ×2 (08:38→22:16)
[2022-03-19] MEDS: TAMSULOSIN HCL 0.4 MG CAPSULE PO SCH ×2 (08:38→22:16)
[2022-03-19] MEDS: FERROUS SULFATE 325 MG EC TABLET PO SCH ×2 (08:38→17:27)
[2022-03-19] MEDS: BENZONATATE 100 MG CAPSULE PO SCH ×3 (08:38→22:16)
[2022-03-19] MEDS: DIGOXIN 250 MCG/ML 2 ML AMP IVP SCH (08:40)
[2022-03-19] MEDS: PANTOPRAZOLE SODIUM 40 MG/VIAL IVP SCH (08:40)
[2022-03-19] MEDS: NICOTINE 14 MG/24 HOUR PATCH TD SCH (08:42)
[2022-03-19] MEDS: MIDODRINE HCL 5 MG TABLET PO SCH ×3 (08:45→22:16)
[2022-03-19] MEDS: NYSTATIN 500,000 UNITS/5 ML SUSPENSION UDCUP PO SCH ×2 (08:45→16:05)
[2022-03-19] MEDS: LACTOBACILLUS ACIDOPHILUS/BULGARICUS TABLET PO SCH ×2 (08:45→22:16)
[2022-03-19] MEDS: PYRAZINAMIDE 500 MG TABLET PO SCH (08:45)
[2022-03-19] MEDS: APIXABAN 2.5 MG TABLET PO SCH ×2 (08:46→22:17)
[2022-03-19] MEDS: PYRIDOXINE HCL 50 MG TABLET PO SCH (08:47)
[2022-03-19] MEDS: RIFAMPIN 300 MG CAPSULE PO SCH (08:47)
[2022-03-19] MEDS: ISONIAZID 300 MG TABLET PO SCH (08:47)
[2022-03-19] MEDS: ETHAMBUTOL HCL 400 MG TABLET PO SCH (08:47)
[2022-03-19] MEDS: ALBUTEROL SULFATE 2.5 MG/0.5 ML NEB SOLUTION NEB SCH ×3 (08:50→20:08)
[2022-03-19] MEDS: IPRATROPIUM BROMIDE 0.5 MG/2.5 ML NEB SOLUTION NEB SCH ×3 (08:50→20:08)
[2022-03-19] MEDS: ACETYLCYSTEINE 10% 100 MG/ML 4 ML NEB SOLUTION NEB SCH ×3 (08:50→20:08)
[2022-03-19 11:35] VITALS: BP 144/56
[2022-03-19] MEDS: POTASSIUM CHL 10 MEQ/WATER 50 ML IV SCH ×2 (11:51→11:52)
[2022-03-19] MEDS: ETHYL ALCOHOL 62% ANTISEPTIC NASAL SANITIZER 0.6 ML AMPUL NASAL SCH ×2 (12:55→22:16)
[2022-03-19] MEDS: SODIUM,POTASSIUM PHOSPHATES POWDER PACKET PO SCH ×2 (12:55→22:16)
[2022-03-19] MEDS ORDERED: SODIUM CHLORIDE 0.9% 100 ML ONE (14:43)
[2022-03-19 16:35] VITALS: BP 127/57
[2022-03-19 20:50] VITALS: BP 94/55
[2022-03-19] MEDS ORDERED: [UNRECOGNIZED DRUG - OTHER] IV SCH ×9 (22:00)
[2022-03-19] MEDS ORDERED: SODIUM PHOS M BASIC D BASIC IV SCH ×9 (22:00)
[2022-03-19] MEDS ORDERED: PPN IV SCH ×9 (22:00)
[2022-03-19] MEDS ORDERED: SODIUM CHLORIDE IV SCH ×9 (22:00)
[2022-03-19] MEDS: ACETAMINOPHEN 325 MG TABLET PO PRN (22:15)
[2022-03-19] MEDS: MIRTAZAPINE 15 MG TABLET PO SCH (22:17)
[2022-03-20 00:50] VITALS: BP 96/55
[2022-03-20 04:45] VITALS: BP 98/51
[2022-03-20] MEDS: DILTIAZEM HCL 30 MG TABLET PO SCH ×4 (06:00→17:44)
[2022-03-20 07:59] VITALS: BP 89/46
[2022-03-20] MEDS: SODIUM CHLORIDE 1 GM TABLET PO SCH ×3 (08:00→16:00)
[2022-03-20] MEDS: FERROUS SULFATE 325 MG EC TABLET PO SCH (08:00)
[2022-03-20] MEDS: MIDODRINE HCL 5 MG TABLET PO SCH ×3 (09:00→20:55)
[2022-03-20] MEDS: FUROSEMIDE 20 MG TABLET PO SCH (09:00)
[2022-03-20] MEDS: LACTOBACILLUS ACIDOPHILUS/BULGARICUS TABLET PO SCH (09:00)
[2022-03-20] MEDS: TAMSULOSIN HCL 0.4 MG CAPSULE PO SCH ×2 (09:00→21:00)
[2022-03-20] MEDS: MULTIVITAMINS WITH MINERALS, THERAPEUTIC TABLET PO SCH (09:00)
[2022-03-20] MEDS: DIGOXIN 250 MCG/ML 2 ML AMP IVP SCH (09:00)
[2022-03-20] MEDS: ALBUTEROL SULFATE 2.5 MG/0.5 ML NEB SOLUTION NEB SCH ×2 (09:06→20:18)
[2022-03-20] MEDS: IPRATROPIUM BROMIDE 0.5 MG/2.5 ML NEB SOLUTION NEB SCH ×2 (09:07→20:18)
[2022-03-20] MEDS: ACETYLCYSTEINE 10% 100 MG/ML 4 ML NEB SOLUTION NEB SCH ×2 (09:07→20:19)
[2022-03-20] MEDS: PANTOPRAZOLE SODIUM 40 MG/VIAL IVP SCH (09:40)
[2022-03-20] MEDS: NYSTATIN 500,000 UNITS/5 ML SUSPENSION UDCUP PO SCH ×2 (09:41)
[2022-03-20] MEDS: APIXABAN 2.5 MG TABLET PO SCH ×2 (09:42→21:00)
[2022-03-20] MEDS: NICOTINE 14 MG/24 HOUR PATCH TD SCH (09:44)
[2022-03-20] MEDS: BENZONATATE 100 MG CAPSULE PO SCH ×3 (09:44→21:00)
[2022-03-20] MEDS: AMIODARONE HCL 200 MG TABLET PO SCH ×2 (09:46→21:00)
[2022-03-20] MEDS: ETHYL ALCOHOL 62% ANTISEPTIC NASAL SANITIZER 0.6 ML AMPUL NASAL SCH ×2 (09:48→21:00)
[2022-03-20] MEDS: ACETAMINOPHEN 325 MG TABLET PO PRN (10:16)
[2022-03-20 11:27] VITALS: BP 89/49
[2022-03-20 11:59] LABS: EOSINOPHILS % (AUTO) 3.7 % (1.0-6.0); HEMATOCRIT 23.1 % (41-53); HEMOGLOBIN 7.8 g/dL (13.5-17.5); LYMPHOCYTES # (AUTO) 0.7 K/uL (1.0-4.8); LYMPHOCYTES % (AUTO) 6.6 % (22.0-44.0); MEAN CORPUSCULAR HEMOGLOBIN 37.2 pg (26.0-34.0); MEAN CORPUSCULAR HGB CONC 33.9 G/dL (31.0-37.0); MEAN CORPUSCULAR VOLUME 110 fL (80-100); MONOCYTES # (AUTO) 0.6 K/uL (0.1-1.0); MONOCYTES % (AUTO) 5.2 % (2.0-9.0); NEUTROPHILS # (AUTO) 8.9 K/uL (1.8-7.7); NEUTROPHILS % (AUTO) 83.5 % (40.0-70.0); PLATELET COUNT (AUTO) 296 K/uL (150-450); RED CELL DISTRIBUTION WIDTH 16.7 % (11.5-14.5)
[2022-03-20 12:11] LABS: ANION GAP 9 mmol/L (8-16); CALCIUM, TOTAL 8.6 mg/dL (8.8-10.5); CARBON DIOXIDE 26 mmol/L (22-29); CHLORIDE 101 mmol/L (98-107); CREATININE 0.52 mg/dL (0.60-1.30); GLUCOSE,RANDOM 76 mg/dL (70-110); PHOSPHORUS 2.3 mg/dL (2.5-4.9); POTASSIUM 3.5 mmol/L (3.5-5.1); SODIUM SERUM 136 mmol/L (136-145); UREA NITROGEN, BLOOD 17 mg/dL (7-18)
[2022-03-20 12:12] LABS: GLOMERULAR FILTR. RATE CALC > 60 mL/min (>60)
[2022-03-20] MEDS: LOPERAMIDE HCL 2 MG CAPSULE PO PRN (17:44)
[2022-03-20 17:46] VITALS: BP 97/58
[2022-03-20 19:45] VITALS: BP 92/55
[2022-03-20] MEDS: LORazepam 2 MG/ML VIAL IVP PRN (20:59)
[2022-03-20] MEDS: MIRTAZAPINE 15 MG TABLET PO SCH (21:00)
[2022-03-21 00:16] VITALS: BP 106/49
[2022-03-21 05:00] VITALS: BP 84/49
[2022-03-21] MEDS: DILTIAZEM HCL 30 MG TABLET PO SCH ×2 (06:00)
[2022-03-21] MEDS: ALBUTEROL SULFATE 2.5 MG/0.5 ML NEB SOLUTION NEB SCH ×3 (08:05→19:36)
[2022-03-21] MEDS: IPRATROPIUM BROMIDE 0.5 MG/2.5 ML NEB SOLUTION NEB SCH ×3 (08:05→19:36)
[2022-03-21] MEDS: ACETYLCYSTEINE 10% 100 MG/ML 4 ML NEB SOLUTION NEB SCH (08:05)
[2022-03-21 08:25] VITALS: BP 84/48
[2022-03-21] MEDS: MULTIVITAMINS WITH MINERALS, THERAPEUTIC TABLET PO SCH (09:00)
[2022-03-21] MEDS: FUROSEMIDE 20 MG TABLET PO SCH (09:00)
[2022-03-21] MEDS: ETHYL ALCOHOL 62% ANTISEPTIC NASAL SANITIZER 0.6 ML AMPUL NASAL SCH (09:00)
[2022-03-21] MEDS: AMIODARONE HCL 200 MG TABLET PO SCH ×2 (09:00→20:52)
[2022-03-21] MEDS: DIGOXIN 250 MCG/ML 2 ML AMP IVP SCH (09:00)
[2022-03-21] MEDS: MIDODRINE HCL 5 MG TABLET PO SCH (09:28)
[2022-03-21] MEDS: BENZONATATE 100 MG CAPSULE PO SCH ×3 (09:29→20:56)
[2022-03-21] MEDS: NICOTINE 14 MG/24 HOUR PATCH TD SCH (09:29)
[2022-03-21] MEDS: SODIUM CHLORIDE 1 GM TABLET PO SCH ×2 (09:29)
[2022-03-21] MEDS: APIXABAN 2.5 MG TABLET PO SCH (09:29)
[2022-03-21] MEDS: TAMSULOSIN HCL 0.4 MG CAPSULE PO SCH ×2 (09:29→20:56)
[2022-03-21] MEDS: PANTOPRAZOLE SODIUM 40 MG/VIAL IVP SCH (09:29)
[2022-03-21 12:00] VITALS: BP 92/48
[2022-03-21] MEDS: ACETAMINOPHEN 325 MG TABLET PO PRN (13:24)
[2022-03-21 16:45] VITALS: BP 90/42
[2022-03-21] MEDS: MORPHINE SULFATE 2 MG/ML SYRINGE IVP PRN (16:55)
[2022-03-21 21:07] VITALS: BP 99/47
[2022-03-22 00:43] VITALS: BP 82/52
[2022-03-22] MEDS: MORPHINE SULFATE 2 MG/ML SYRINGE IVP PRN ×3 (01:12→21:02)
[2022-03-22 05:56] VITALS: BP 76/38
[2022-03-22 07:45] VITALS: BP 75/56
[2022-03-22] MEDS: ALBUTEROL SULFATE 2.5 MG/0.5 ML NEB SOLUTION NEB SCH ×3 (08:21→22:34)
[2022-03-22] MEDS: IPRATROPIUM BROMIDE 0.5 MG/2.5 ML NEB SOLUTION NEB SCH ×3 (08:21→22:34)
[2022-03-22] MEDS: AMIODARONE HCL 200 MG TABLET PO SCH ×3 (09:00→21:01)
[2022-03-22] MEDS: TAMSULOSIN HCL 0.4 MG CAPSULE PO SCH ×2 (09:16→21:01)
[2022-03-22] MEDS: BENZONATATE 100 MG CAPSULE PO SCH ×3 (09:16→21:01)
[2022-03-22] MEDS: PANTOPRAZOLE SODIUM 40 MG/VIAL IVP SCH (09:16)
[2022-03-22 11:15] VITALS: BP 78/56
[2022-03-22 11:36] LABS: BASOPHILS % (AUTO) 0.9 % (0.0-2.0); HEMATOCRIT 24.2 % (41-53); HEMOGLOBIN 7.9 g/dL (13.5-17.5); LYMPHOCYTES # (AUTO) 0.5 K/uL (1.0-4.8); LYMPHOCYTES % (AUTO) 4.6 % (22.0-44.0); MEAN CORPUSCULAR HEMOGLOBIN 34.1 pg (26.0-34.0); MEAN CORPUSCULAR HGB CONC 32.8 G/dL (31.0-37.0); MEAN CORPUSCULAR VOLUME 104 fL (80-100); MONOCYTES # (AUTO) 0.5 K/uL (0.1-1.0); MONOCYTES % (AUTO) 4.3 % (2.0-9.0); NEUTROPHILS % (AUTO) 88.2 % (40.0-70.0); PLATELET COUNT (AUTO) 327 K/uL (150-450); RED BLOOD CELL COUNT(AUTO) 2.33 MIL/uL (4.50-5.90); RED CELL DISTRIBUTION WIDTH 15.9 % (11.5-14.5)
[2022-03-22 11:49] LABS: ALBUMIN 2.2 g/dL (3.4-5.0); ANION GAP 7 mmol/L (8-16); CALCIUM, TOTAL 8.6 mg/dL (8.8-10.5); CARBON DIOXIDE 27 mmol/L (22-29); CHLORIDE 100 mmol/L (98-107); CREATININE 0.64 mg/dL (0.60-1.30); GLUCOSE,RANDOM 90 mg/dL (70-110); PHOSPHORUS 2.8 mg/dL (2.5-4.9); POTASSIUM 3.5 mmol/L (3.5-5.1); SODIUM SERUM 134 mmol/L (136-145); UREA NITROGEN, BLOOD 18 mg/dL (7-18)
[2022-03-22 11:53] LABS: GLOMERULAR FILTR. RATE CALC > 60 mL/min (>60)
[2022-03-22 15:10] VITALS: BP 75/41
[2022-03-22 20:10] VITALS: BP 91/48
[2022-03-23] VITALS (7 sets, daily range): BP systolic 91–105; BP diastolic 47–58
[2022-03-23] MEDS: MORPHINE SULFATE 2 MG/ML SYRINGE IVP PRN ×4 (00:27→21:02)
[2022-03-23] MEDS: IPRATROPIUM BROMIDE 0.5 MG/2.5 ML NEB SOLUTION NEB SCH ×3 (08:35→20:30)
[2022-03-23] MEDS: ALBUTEROL SULFATE 2.5 MG/0.5 ML NEB SOLUTION NEB SCH ×3 (08:35→20:30)
[2022-03-23] MEDS: AMIODARONE HCL 200 MG TABLET PO SCH ×2 (09:37→21:53)
[2022-03-23] MEDS: TAMSULOSIN HCL 0.4 MG CAPSULE PO SCH ×2 (09:37→21:53)
[2022-03-23] MEDS: BENZONATATE 100 MG CAPSULE PO SCH ×3 (09:37→21:53)
[2022-03-23] MEDS: LORazepam 2 MG/ML VIAL IVP PRN ×2 (09:38→21:54)
[2022-03-23] MEDS: PANTOPRAZOLE SODIUM 40 MG/VIAL IVP SCH (09:38)
[2022-03-24 04:23] VITALS: BP 100/52
[2022-03-24 07:58] VITALS: BP 105/49
[2022-03-24] MEDS: AMIODARONE HCL 200 MG TABLET PO SCH ×2 (09:00→20:34)
[2022-03-24] MEDS: ALBUTEROL SULFATE 2.5 MG/0.5 ML NEB SOLUTION NEB SCH ×3 (09:36→21:08)
[2022-03-24] MEDS: IPRATROPIUM BROMIDE 0.5 MG/2.5 ML NEB SOLUTION NEB SCH ×3 (09:36→21:07)
[2022-03-24] MEDS: TAMSULOSIN HCL 0.4 MG CAPSULE PO SCH ×2 (09:57→20:34)
[2022-03-24] MEDS: BENZONATATE 100 MG CAPSULE PO SCH ×3 (09:58→20:34)
[2022-03-24] MEDS: MORPHINE SULFATE 2 MG/ML SYRINGE IVP PRN ×3 (10:38→21:17)
[2022-03-24 16:00] VITALS: BP 106/57
[2022-03-24 20:07] VITALS: BP 95/59
[2022-03-25 05:53] VITALS: BP 100/51
[2022-03-25 08:00] VITALS: BP 97/52
[2022-03-25] MEDS: BENZONATATE 100 MG CAPSULE PO SCH ×3 (08:30→21:01)
[2022-03-25] MEDS: TAMSULOSIN HCL 0.4 MG CAPSULE PO SCH ×2 (08:30→21:01)
[2022-03-25] MEDS: AMIODARONE HCL 200 MG TABLET PO SCH ×2 (08:31→21:01)
[2022-03-25] MEDS: IPRATROPIUM BROMIDE 0.5 MG/2.5 ML NEB SOLUTION NEB SCH ×3 (09:05→20:01)
[2022-03-25] MEDS: ALBUTEROL SULFATE 2.5 MG/0.5 ML NEB SOLUTION NEB SCH ×3 (09:05→20:01)
[2022-03-25] MEDS: MORPHINE SULFATE 2 MG/ML SYRINGE IVP PRN ×3 (09:41→23:51)
[2022-03-25 15:14] VITALS: BP 98/54
[2022-03-25 20:58] VITALS: BP 77/46
[2022-03-26 04:55] VITALS: BP 95/56
[2022-03-26] MEDS: LORazepam 2 MG/ML VIAL IVP PRN (05:19)
[2022-03-26 08:02] VITALS: BP 83/51
[2022-03-26] MEDS: BENZONATATE 100 MG CAPSULE PO SCH ×3 (08:55→20:20)
[2022-03-26] MEDS: TAMSULOSIN HCL 0.4 MG CAPSULE PO SCH ×2 (08:55→20:20)
[2022-03-26] MEDS: AMIODARONE HCL 200 MG TABLET PO SCH ×2 (08:55→20:20)
[2022-03-26] MEDS: ALBUTEROL SULFATE 2.5 MG/0.5 ML NEB SOLUTION NEB SCH ×3 (09:25→21:00)
[2022-03-26] MEDS: IPRATROPIUM BROMIDE 0.5 MG/2.5 ML NEB SOLUTION NEB SCH ×3 (09:26→21:00)
[2022-03-26 16:18] VITALS: BP 78/49
[2022-03-26] MEDS: PANTOPRAZOLE SODIUM 40 MG DR TABLET PO SCH (16:55)
[2022-03-26] MEDS: MORPHINE SULFATE 2 MG/ML SYRINGE IVP PRN (16:55)
[2022-03-26 19:30] VITALS: BP 63/28
[2022-03-27] MEDS: MORPHINE SULFATE 2 MG/ML SYRINGE IVP PRN ×3 (01:40→11:30)
[2022-03-27 04:05] VITALS: BP 57/41
[2022-03-27] MEDS: LORazepam 2 MG/ML VIAL IVP PRN ×2 (05:04→11:32)
[2022-03-27 07:56] VITALS: BP 100/53
[2022-03-27] MEDS: PANTOPRAZOLE SODIUM 40 MG DR TABLET PO SCH (08:25)
[2022-03-27] MEDS: TAMSULOSIN HCL 0.4 MG CAPSULE PO SCH (08:25)
[2022-03-27] MEDS: BENZONATATE 100 MG CAPSULE PO SCH ×2 (08:26→15:57)
[2022-03-27] MEDS: AMIODARONE HCL 200 MG TABLET PO SCH (08:27)
[2022-03-27] MEDS: IPRATROPIUM BROMIDE 0.5 MG/2.5 ML NEB SOLUTION NEB SCH (09:00)
[2022-03-27] MEDS: ALBUTEROL SULFATE 2.5 MG/0.5 ML NEB SOLUTION NEB SCH (09:00)
[2022-03-27 09:15] LABS: COVID AG,FIA SOURCE NASAL SWAB
[2022-03-27] MEDS ORDERED: PANT-31 PO (10:49)
[2022-03-27] MEDS ORDERED: TAMS-13 PO (10:50)
[2022-03-27] MEDS ORDERED: AMIO200T68 PO (10:50)
[2022-03-27 15:00] VITALS: BP 98/55
== END 2022-03-27 17:32 | disposition hospice, home (50) | DRG 308 ==
LOC: EMS 11:07 → 5S 16:43 → ICU 03-04 00:19 → 5S 03-04 21:20 → 5N 03-06 13:17 → 6N 03-24 07:25
PROVIDERS: ADMIT Internal Medicine; ATTEND Internal Medicine
PROC: 5A0935A Assistance with Respiratory Ventilation, Less than 24 Consecutive Hours, High Flow/Velocity Cannula (ICD-10-PCS; principal; 2022-03-12)
PROC: 5A0935A Assistance with Respiratory Ventilation, Less than 24 Consecutive Hours, High Flow/Velocity Cannula (ICD-10-PCS; 2022-03-13)
PROC: 5A0945A Assistance with Respiratory Ventilation, 24-96 Consecutive Hours, High Flow/Velocity Cannula (ICD-10-PCS; 2022-03-14)
PROC: 5A0935A Assistance with Respiratory Ventilation, Less than 24 Consecutive Hours, High Flow/Velocity Cannula (ICD-10-PCS; 2022-03-16)
PROC: 5A0935A Assistance with Respiratory Ventilation, Less than 24 Consecutive Hours, High Flow/Velocity Cannula (ICD-10-PCS; 2022-03-17)
PROC: 5A0935A Assistance with Respiratory Ventilation, Less than 24 Consecutive Hours, High Flow/Velocity Cannula (ICD-10-PCS; 2022-03-18)
PROC: 5A0935A Assistance with Respiratory Ventilation, Less than 24 Consecutive Hours, High Flow/Velocity Cannula (ICD-10-PCS; 2022-03-19)
PROC: 5A0935A Assistance with Respiratory Ventilation, Less than 24 Consecutive Hours, High Flow/Velocity Cannula (ICD-10-PCS; 2022-03-20)
PROC: 5A0935A Assistance with Respiratory Ventilation, Less than 24 Consecutive Hours, High Flow/Velocity Cannula (ICD-10-PCS; 2022-03-21)
PROC: 5A0935A Assistance with Respiratory Ventilation, Less than 24 Consecutive Hours, High Flow/Velocity Cannula (ICD-10-PCS; 2022-03-22)
PROC: 5A0935A Assistance with Respiratory Ventilation, Less than 24 Consecutive Hours, High Flow/Velocity Cannula (ICD-10-PCS; 2022-03-23)
PROC: 5A0935A Assistance with Respiratory Ventilation, Less than 24 Consecutive Hours, High Flow/Velocity Cannula (ICD-10-PCS; 2022-03-24)
PROC: 5A0935A Assistance with Respiratory Ventilation, Less than 24 Consecutive Hours, High Flow/Velocity Cannula (ICD-10-PCS; 2022-03-25)
DX: I48.0 Paroxysmal atrial fibrillation (principal); E43 Unspecified severe protein-calorie malnutrition; J96.01 Acute respiratory failure with hypoxia; I50.33 Acute on chronic diastolic (congestive) heart failure; A31.0 Pulmonary mycobacterial infection; Z68.1 Body mass index [BMI] 19.9 or less, adult; E22.2 Syndrome of inappropriate secretion of antidiuretic hormone; C34.91 Malignant neoplasm of unspecified part of right bronchus or lung; Z66 Do not resuscitate; Z20.1 Contact with and (suspected) exposure to tuberculosis; E78.01 Familial hypercholesterolemia; R62.7 Adult failure to thrive; D72.829 Elevated white blood cell count, unspecified; E87.6 Hypokalemia; F10.10 Alcohol abuse, uncomplicated; E86.0 Dehydration; Z20.822 Contact with and (suspected) exposure to COVID-19; D50.9 Iron deficiency anemia, unspecified; D63.8 Anemia in other chronic diseases classified elsewhere; E83.42 Hypomagnesemia; E86.1 Hypovolemia; F17.210 Nicotine dependence, cigarettes, uncomplicated; J44.9 Chronic obstructive pulmonary disease, unspecified; J98.4 Other disorders of lung; Z51.5 Encounter for palliative care; Z63.8 Other specified problems related to primary support group; Z78.9 Other specified health status; Z79.01 Long term (current) use of anticoagulants; Z99.81 Dependence on supplemental oxygen; Z71.6 Tobacco abuse counseling
CPT/HCPCS: 36600; 71045; 71275; 76770; 80048; 80053; 80061; 80076; 80162; 81001; 82040; 82271; 82533; 82570; 82805; 82962; 83540; 83550; 83605; 83735; 83880; 83930; 83935; 84100; 84132; 84133; 84145; 84156; 84300; 84439; 84443; 84484; 84540; 84550; 85025; 85610; 85730; 86171; 87015; 87081; 87086; 87149; 87186; 87206; 87556; 93005; 93306; 94640; 94760; 97162; 99291; C9113; J0282; J0610; J0696; J1160; J1644; J1756; J1940; J2060; J2270; J2370; J3475; J3480; J3490; J7030; J7040; J7050; J7060; J7070; J7120; J7131; P9046; Q9967; 36415-L1; 36415-TC; J7613; X7700